=== PATIENT | male | born 1970 | race Caucasian/White ===

== ENCOUNTER → 2016-12-01 | Outpatient (REF) | payer OTHER ==
[2016-12-01 15:56] LABS: ALBUMIN/GLOBULIN RATIO 1.25 (1.00-1.93); ALKALINE PHOSPHATASE 52 U/L (45-117); ALT/SGPT 27 U/L (12-78); ANION GAP 8 MEQ/L (8-16); AST/SGOT 20 U/L (15-37); BILIRUBIN,TOTAL 0.5 MG/DL (0.2-1.0); BLOOD UREA NITROGEN 10 MG/DL (7-18); CALCIUM LEVEL 8.8 MG/DL (8.5-10.1); CARBON DIOXIDE LEVEL 23 MEQ/L (21-32); CHLORIDE LEVEL 101 MEQ/L (98-107); CREATININE FOR GFR 0.79 MG/DL (0.70-1.30); GLOMERULAR FILTRATION RATE > 60.0 (>60); GLUCOSE, FASTING 90 MG/DL (70-105); POTASSIUM SERUM 4.2 MEQ/L (3.5-5.1); SODIUM LEVEL 132 MEQ/L (136-145); TOTAL PROTEIN 7.2 GM/DL (6.4-8.2)
== END ==
LOC: M SFHCPLAZ 14:17
PROVIDERS: ATTEND Physician Assistant
DX: I10 Essential (primary) hypertension (principal)

== ENCOUNTER → 2017-04-01 | Outpatient (CLI) | payer OTHER ==
[2017-04-01 09:10] LABS: ALBUMIN 3.9 GM/DL (3.2-5.2); ALBUMIN/GLOBULIN RATIO 1.18 (1.00-1.93); ALKALINE PHOSPHATASE 51 U/L (45-117); ALT/SGPT 25 U/L (12-78); ANION GAP 4 MEQ/L (8-16); AST/SGOT 20 U/L (7-37); BILIRUBIN,TOTAL 0.3 MG/DL (0.2-1.0); BLOOD UREA NITROGEN 13 MG/DL (7-18); CALCIUM LEVEL 9.1 MG/DL (8.5-10.1); CARBON DIOXIDE LEVEL 27 MEQ/L (21-32); CHLORIDE LEVEL 107 MEQ/L (98-107); CHOLESTEROL LEVEL 244 MG/DL (<200); CREATININE FOR GFR 0.75 MG/DL (0.70-1.30); FREE T4 0.82 NG/DL (0.76-1.46); GLOMERULAR FILTRATION RATE > 60.0 (>60); GLUCOSE, FASTING 102 MG/DL (70-105); POTASSIUM SERUM 5.1 MEQ/L (3.5-5.1); SODIUM LEVEL 138 MEQ/L (136-145); TOTAL PROTEIN 7.2 GM/DL (6.4-8.2); TRIGLYCERIDES LEVEL 97 MG/DL (<150)
== END ==
LOC: M LAB 08:01 → M LAB REF 08:01
PROVIDERS: ATTEND Nurse Practitioner Family
DX: I10 Essential (primary) hypertension (principal); E78.5 Hyperlipidemia, unspecified; N52.9 Male erectile dysfunction, unspecified

== ENCOUNTER → 2017-04-14 | Outpatient (REF) | payer OTHER ==
[2017-04-14 16:54] LABS: FREE T4 0.98 NG/DL (0.76-1.46)
== END ==
LOC: M SFHCPLAZ 13:39
PROVIDERS: ATTEND Nurse Practitioner Family
DX: R94.6 Abnormal results of thyroid function studies (principal)

== ENCOUNTER → 2018-01-11 | Outpatient (CLI) | payer OTHER | LOC: M RAD 15:59 | DX: M54.2 Cervicalgia (principal) | CPT/HCPCS: 72052 ==

== ENCOUNTER → 2018-03-12 | Outpatient (REF) | payer OTHER | LOC: M SFHCPLAZ 16:18 | DX: I10 Essential (primary) hypertension (principal); E78.5 Hyperlipidemia, unspecified ==

== ENCOUNTER → 2018-08-28 | Outpatient (REF) | payer OTHER ==
[2018-08-28 10:43] LABS: MALB URINE SIEMENS 16.6 MG/L; MAU/CREAT RATIO 6.3 MCG/MG (0.0-30.0)
[2018-08-28 11:01] LABS: ALBUMIN 4.1 GM/DL (3.2-5.2); ALT/SGPT 21 U/L (12-78); BILIRUBIN,TOTAL 0.3 MG/DL (0.2-1.0); BLOOD UREA NITROGEN 9 MG/DL (7-18); CALCIUM LEVEL 9.3 MG/DL (8.5-10.1); CARBON DIOXIDE LEVEL 25 MEQ/L (21-32); CHLORIDE LEVEL 105 MEQ/L (98-107); CHOLESTEROL LEVEL 216 MG/DL (<200); CHOLESTEROL RISK RATIO 3.042 (<5); CREATININE FOR GFR 0.73 MG/DL (0.70-1.30); GLOMERULAR FILTRATION RATE > 60.0 (>60); GLUCOSE, FASTING 97 MG/DL (70-100); HDL CHOLESTEROL 71 MG/DL (>40); LDL CHOLESTEROL 129 MG/DL (<100); NON-HDL-C 145 MG/DL; POTASSIUM SERUM 5.1 MEQ/L (3.5-5.1); SODIUM LEVEL 136 MEQ/L (136-145); TOTAL PROTEIN 7.2 GM/DL (6.4-8.2); TRIGLYCERIDES LEVEL 81 MG/DL (<150)
== END ==
LOC: M SFHCPLAZ 08:16
PROVIDERS: ATTEND Nurse Practitioner Family
DX: I10 Essential (primary) hypertension (principal); E78.5 Hyperlipidemia, unspecified

== ENCOUNTER 2019-03-29 06:44 | Day surgery (SDC) | payer OTHER ==
[~2019-03-29] VITALS: Ht 162.6 cm; Wt 61.7 kg
[~2019-03-29 06:44] MED LIST: LISI10TA4 PO; NS 1,000 ML IV ONE
[2019-03-29] MEDS ORDERED: LIDOCAINE 2% INJ 100 MG/5 ML SDV (FOR ANES.) As Ordered ONE (07:47)
[2019-03-29] MEDS ORDERED: PROPOFOL 200 MG/20 ML VIAL As Ordered ONE (07:47)
--- NOTE | 2019-03-29 08:06 | ROOR ---
Patient Name: Óscar Marcus Procedure Date: 03/29/2019 7:29 AM Date of : 1970 Age: 48 Room: [facility] Gender: Male Note Status: Finalized Procedure: Colonoscopy Indications: Screening in patient at increased risk: Family history of 1st-degree relative with colorectal cancer before age 60 years Providers: Pato Segundo MD Referring MD: Tiffanie Mccain NP Requesting Provider: Medicines: Monitored Anesthesia Care Complications: No immediate complications. Procedure: Pre-Anesthesia Assessment: - Prior to the procedure, a History and Physical was performed, and patient medications and allergies were reviewed. The patient is competent. The risks and benefits of the procedure and the sedation options and risks were discussed with the patient. All questions were answered and informed consent was obtained. Patient identification and proposed procedure were verified by the physician, the nurse and the anesthesiologist in the procedure room. Mental Status Examination: alert and oriented. Airway Examination: normal oropharyngeal airway and neck mobility. Respiratory Examination: clear to auscultation. CV Examination: normal. Prophylactic Antibiotics: The patient does not require prophylactic antibiotics. Prior Anticoagulants: The patient has taken no previous anticoagulant or antiplatelet agents. ASA Grade Assessment: II - A patient with mild systemic disease. After reviewing the risks and benefits, the patient was deemed in satisfactory condition to undergo the procedure. The anesthesia plan was to use monitored anesthesia care (MAC). Immediately prior to administration of medications, the patient was re-assessed for adequacy to receive sedatives. The heart rate, respiratory rate, oxygen saturations, blood pressure, adequacy of pulmonary ventilation, and response to care were monitored throughout the procedure. The physical status of the patient was re-assessed after the procedure. The Colonoscope was introduced through the anus and advanced to the terminal ileum, with identification of the appendiceal orifice and IC valve. The colonoscopy was performed without difficulty. The patient tolerated the procedure well. The quality of the bowel preparation was good. The terminal ileum, ileocecal valve, appendiceal orifice, and rectum were photographed. Scope insertion time was 3 minutes. Scope withdrawal time was 8 minutes. The total duration of the procedure was 12 minutes. Findings: The perianal and digital rectal examinations were normal. Two sessile polyps were found in the recto-sigmoid colon. The polyps were 8 to 10 mm in size. These polyps were removed with a cold snare. Resection and retrieval were complete. Verification of patient identification for the specimen was done by the physician and nurse using the patient's name, date and medical record number. Estimated blood loss was minimal. A scattered area of mildly nodular mucosa was found in the ascending colon. Biopsies were taken with a cold forceps for histology. Two medium-sized localized angioectasias without bleeding were found in the recto-sigmoid colon and in the descending colon. Non-bleeding external and internal hemorrhoids were found during retroflexion. The hemorrhoids were medium-sized. Impression: - Two 8 to 10 mm polyps at the recto-sigmoid colon, removed with a cold snare. Resected and retrieved. - Abnormal mucosa in the ascending colon. Biopsied. - Two non-bleeding colonic angioectasias. - Non-bleeding external and internal hemorrhoids. Recommendation: - Patient has a contact number available for emergencies. The signs and symptoms of potential delayed complications were discussed with the patient. Return to normal activities tomorrow. Written discharge instructions were provided to the patient. - High fiber diet. - Continue present medications. - Await pathology results. - Repeat colonoscopy in 3 - 5 years for surveillance based on pathology results. - Telephone GI clinic for pathology results in 2 weeks. - Return to primary care physician. Pato Segundo MD Pato Segundo MD 03/29/2019 8:06:02 AM Electronically signed by Pato Segundo MD Number of Addenda: 0 Note Initiated On: 03/29/2019 7:29 AM Estimated Blood Loss: Estimated blood loss was minimal.
[2019-03-29 08:20] VITALS: BP 132/83
== END 2019-03-29 08:25 | disposition home or self-care (01) ==
LOC: M OPP 06:44
PROVIDERS: ATTEND Internal Medicine Gastroenterology
DX: Z12.11 Encounter for screening for malignant neoplasm of colon (principal); Z80.0 Family history of malignant neoplasm of digestive organs; D12.7 Benign neoplasm of rectosigmoid junction; D12.2 Benign neoplasm of ascending colon; K63.89 Other specified diseases of intestine; K55.20 Angiodysplasia of colon without hemorrhage; K64.8 Other hemorrhoids; F17.210 Nicotine dependence, cigarettes, uncomplicated; Z79.899 Other long term (current) drug therapy; Z88.0 Allergy status to penicillin; Z91.013 Allergy to seafood; Z80.52 Family history of malignant neoplasm of bladder

== ENCOUNTER → 2019-09-09 | Outpatient (REF) | payer OTHER ==
[~2019-09-09] MED LIST changes: -NS 1,000 ML IV ONE
[2019-09-09 14:17] LABS: BASO % 0.3 % (0.0-1.0); EOS # 0.1 10^3/uL (0.0-0.5); EOS % 0.9 % (0.0-3.0); HEMATOCRIT 42.1 % (42.0-52.0); LYMPH # 2.3 10^3/uL (1.5-5.0); MEAN CORPUSCULAR HGB CONC 33.3 g/dl (32.0-36.5); MEAN CORPUSCULAR VOLUME 96.3 fl (80.0-96.0); MONO # 0.9 10^3/uL (0.0-0.8); NEUTROPHILS # 3.3 10^3/uL (1.5-8.5); NEUTROPHILS % 49.5 % (36.0-66.0); PLATELET COUNT, AUTOMATED 319 10^3/uL (150-450); RED BLOOD COUNT 4.37 10^6/uL (4.30-6.10); WHITE BLOOD COUNT 6.7 10^3/uL (4.0-10.0)
[2019-09-09 14:33] LABS: ALBUMIN 3.9 GM/DL (3.2-5.2); ALT/SGPT 24 U/L (12-78); BILIRUBIN,TOTAL 0.5 MG/DL (0.2-1.0); BLOOD UREA NITROGEN 14 MG/DL (7-18); CALCIUM LEVEL 9.2 MG/DL (8.5-10.1); CARBON DIOXIDE LEVEL 27 MEQ/L (21-32); CHLORIDE LEVEL 106 MEQ/L (98-107); CHOLESTEROL LEVEL 218 MG/DL (<200); CHOLESTEROL RISK RATIO 2.759 (<5); CREATININE FOR GFR 0.67 MG/DL (0.70-1.30); FOLLICLE STIMULATING HORMONE 6.5 mIU/mL (1.4-18.1); FREE T4 0.88 NG/DL (0.76-1.46); GLOMERULAR FILTRATION RATE > 60.0 (>60); GLUCOSE, FASTING 97 MG/DL (70-100); HDL CHOLESTEROL 79 MG/DL (>40); LDL CHOLESTEROL 130 MG/DL (<100); LUTEINIZING HORMONE 4.8 mIU/mL (1.5-9.3); NON-HDL-C 139 MG/DL; POTASSIUM SERUM 4.5 MEQ/L (3.5-5.1); SODIUM LEVEL 138 MEQ/L (136-145); TOTAL PROTEIN 7.1 GM/DL (6.4-8.2); TRIGLYCERIDES LEVEL 45 MG/DL (<150); VITAMIN B12 LEVEL 536 PG/ML (247-911)
[2019-09-11 00:09] LABS: TESTOSTERONE FREE (DIRECT) 10.6 pg/mL (6.8-21.5)
== END ==
LOC: M SFHCPLAZ 10:09
PROVIDERS: ATTEND Physician Assistant Medical
DX: E78.5 Hyperlipidemia, unspecified (principal); I10 Essential (primary) hypertension; F17.200 Nicotine dependence, unspecified, uncomplicated; N52.9 Male erectile dysfunction, unspecified

== ENCOUNTER 2019-09-16 10:46 | Emergency (ER) | payer OTHER ==
[~2019-09-16] VITALS: Ht 162.6 cm; Wt 65.6 kg
[2019-09-16] MEDS ORDERED: CYCL-707 (10:57)
[2019-09-16] MEDS ORDERED: ATOR1TAB21 (10:57)
[2019-09-16 11:25] LABS: BASO % 0.4 % (0.0-1.0); EOS # 0.1 10^3/uL (0.0-0.5); EOS % 0.6 % (0.0-3.0); HEMATOCRIT 44.9 % (42.0-52.0); HEMOGLOBIN 15.4 g/dl (13.5-17.5); LYMPH # 2.6 10^3/uL (1.5-5.0); LYMPH % 32.8 % (24.0-44.0); MEAN CORPUSCULAR HEMOGLOBIN 33.6 pg (27.0-33.0); MEAN CORPUSCULAR HGB CONC 34.3 g/dl (32.0-36.5); MEAN CORPUSCULAR VOLUME 97.8 fl (80.0-96.0); MONO # 0.8 10^3/uL (0.0-0.8); MONO % 10.3 % (0.0-5.0); NEUTROPHILS # 4.4 10^3/uL (1.5-8.5); NEUTROPHILS % 55.5 % (36.0-66.0); PLATELET COUNT, AUTOMATED 275 10^3/uL (150-450); RED BLOOD COUNT 4.59 10^6/uL (4.30-6.10); WHITE BLOOD COUNT 7.9 10^3/uL (4.0-10.0)
[2019-09-16 12:02] LABS: BLOOD UREA NITROGEN 13 MG/DL (7-18); CARBON DIOXIDE LEVEL 27 MEQ/L (21-32); CHLORIDE LEVEL 104 MEQ/L (98-107); CK-MB VALUE MASS < 1.0 NG/ML (<3.6); CPK CREATINE PHOSPHOKINASE 80 U/L (39-308); GLOMERULAR FILTRATION RATE > 60.0 (>60); GLUCOSE, FASTING 103 MG/DL (70-100); MB/CK RELATIVE INDEX 1.25 (< OR =4); POTASSIUM SERUM 4.1 MEQ/L (3.5-5.1); SODIUM LEVEL 136 MEQ/L (136-145); TROPONIN I < 0.02 NG/ML (< 0.10)
[2019-09-16 13:15] VITALS: BP 119/73
--- NOTE | 2019-09-16 13:39 | REP ---
CHEST, SINGLE VIEW: There is no evidence of acute infiltrate. No pleural effusion is seen. The heart is normal in size. The mediastinal silhouette is unremarkable. The visualized osseous structures are intact. IMPRESSION: No acute pulmonary disease. Electronically Signed by Enrrique Ruiz MD 09/16/2019 01:46 P
--- NOTE | 2019-09-16 16:46 | ECGEPIP ---
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
== END 2019-09-16 13:21 | disposition home or self-care (01) ==
LOC: M ED 10:46
DX: M54.12 Radiculopathy, cervical region (principal); R07.89 Other chest pain; Z79.899 Other long term (current) drug therapy; Z88.0 Allergy status to penicillin; Z91.018 Allergy to other foods; F17.210 Nicotine dependence, cigarettes, uncomplicated

== ENCOUNTER → 2019-12-18 | Outpatient (REF) | payer OTHER ==
[~2019-12-18] MED LIST changes: +ATOR1TAB21; +CYCL-707
[2020-01-18 10:19] LABS: BASO % 0.3 % (0.0-1.0); EOS # 0.1 10^3/uL (0.0-0.5); EOS % 0.8 % (0.0-3.0); HEMOGLOBIN 14.1 g/dl (13.5-17.5); LYMPH # 2.9 10^3/uL (1.5-5.0); LYMPH % 33.2 % (24.0-44.0); MEAN CORPUSCULAR HEMOGLOBIN 33.2 pg (27.0-33.0); MEAN CORPUSCULAR HGB CONC 33.6 g/dl (32.0-36.5); MEAN CORPUSCULAR VOLUME 98.8 fl (80.0-96.0); MONO % 10.8 % (0.0-5.0); NEUTROPHILS # 4.8 10^3/uL (1.5-8.5); NEUTROPHILS % 54.6 % (36.0-66.0); PLATELET COUNT, AUTOMATED 294 10^3/uL (150-450); RED BLOOD COUNT 4.25 10^6/uL (4.30-6.10); WHITE BLOOD COUNT 8.9 10^3/uL (4.0-10.0)
[2020-01-31 21:52] LABS: ALBUMIN 4.1 GM/DL (3.2-5.2); ALT/SGPT 32 U/L (12-78); BILIRUBIN,TOTAL 0.5 MG/DL (0.2-1.0); BLOOD UREA NITROGEN 14 MG/DL (7-18); CALCIUM LEVEL 9.4 MG/DL (8.5-10.1); CARBON DIOXIDE LEVEL 29 MEQ/L (21-32); CHLORIDE LEVEL 105 MEQ/L (98-107); CHOLESTEROL LEVEL 160 MG/DL (<200); CHOLESTEROL RISK RATIO 2.051 (<5); CREATININE FOR GFR 0.69 MG/DL (0.70-1.30); GLOMERULAR FILTRATION RATE > 60.0 (>60); GLUCOSE, FASTING 98 MG/DL (70-100); HDL CHOLESTEROL 78 MG/DL (>40); LDL CHOLESTEROL 71 MG/DL (<100); NON-HDL-C 82 MG/DL; POTASSIUM SERUM 5.1 MEQ/L (3.5-5.1); SODIUM LEVEL 138 MEQ/L (136-145); TOTAL PROTEIN 7.3 GM/DL (6.4-8.2); TRIGLYCERIDES LEVEL 57 MG/DL (<150)
== END ==
LOC: M SFHCPLAZ 15:12
PROVIDERS: ATTEND Physician Assistant Medical
DX: I10 Essential (primary) hypertension (principal); E78.5 Hyperlipidemia, unspecified

== ENCOUNTER → 2020-04-17 | Outpatient (CLI) | payer OTHER ==
--- NOTE | 2020-04-17 11:28 | REPPI ---
INDICATION: CYST LEFT HAND COMPARISON: None. TECHNIQUE: Four plain film views of the left hand. FINDINGS: There is no fracture or dislocation. Mineralization and joint spaces are normal. There are no calcifications or foreign bodies. No bone cysts are identified. Soft tissue cysts would not be visible on plain films. IMPRESSION: Essentially negative left hand. No bone cysts are identified. Soft tissues cyst would not be visible on plain films. Depending on clinical concerns consider follow-up MRI or ultrasound. <Electronically signed by Enrrique Howell > 04/17/20 112
== END ==
LOC: M PLAIMG 10:27
PROVIDERS: ATTEND Physician Assistant Medical
DX: M85.642 Other cyst of bone, left hand (principal)

== ENCOUNTER → 2020-05-17 | Outpatient (CLI) | payer OTHER | LOC: M LABSMTC 08:22 | PROVIDERS: ATTEND Anesthesiology | DX: Z01.812 Encounter for preprocedural laboratory examination (principal); Z20.822 Contact with and (suspected) exposure to COVID-19 ==

== ENCOUNTER → 2020-06-04 | Outpatient (CLI) | payer OTHER | LOC: M LABSMTC 10:52 | PROVIDERS: ATTEND Anesthesiology | DX: Z01.812 Encounter for preprocedural laboratory examination (principal); Z20.822 Contact with and (suspected) exposure to COVID-19 ==

== ENCOUNTER → 2020-06-04 | Outpatient (REF) | payer OTHER ==
[2020-06-04 13:49] LABS: BASO % 0.3 % (0.0-1.0); EOS # 0.1 10^3/uL (0.0-0.5); EOS % 0.8 % (0.0-3.0); HEMATOCRIT 38.5 % (42.0-52.0); HEMOGLOBIN 12.6 g/dl (13.5-17.5); LYMPH # 2.3 10^3/uL (1.5-5.0); LYMPH % 35.6 % (24.0-44.0); MEAN CORPUSCULAR HEMOGLOBIN 32.1 pg (27.0-33.0); MEAN CORPUSCULAR HGB CONC 32.7 g/dl (32.0-36.5); MONO # 0.8 10^3/uL (0.0-0.8); MONO % 12.9 % (0.0-5.0); NEUTROPHILS # 3.3 10^3/uL (1.5-8.5); NEUTROPHILS % 50.2 % (36.0-66.0); PLATELET COUNT, AUTOMATED 278 10^3/uL (150-450); RED BLOOD COUNT 3.93 10^6/uL (4.30-6.10); WHITE BLOOD COUNT 6.5 10^3/uL (4.0-10.0)
[2020-06-04 14:42] LABS: ALT/SGPT 33 U/L (12-78); BILIRUBIN,TOTAL 0.5 MG/DL (0.2-1.0); BLOOD UREA NITROGEN 13 MG/DL (7-18); CALCIUM LEVEL 9.3 MG/DL (8.5-10.1); CARBON DIOXIDE LEVEL 27 MEQ/L (21-32); CHLORIDE LEVEL 105 MEQ/L (98-107); CPK CREATINE PHOSPHOKINASE 172 U/L (39-308); CREATININE FOR GFR 0.72 MG/DL (0.70-1.30); GLOMERULAR FILTRATION RATE > 60.0 (>60); GLUCOSE, FASTING 114 MG/DL (70-100); POTASSIUM SERUM 4.4 MEQ/L (3.5-5.1); SODIUM LEVEL 140 MEQ/L (136-145); TOTAL PROTEIN 6.8 GM/DL (6.4-8.2)
== END ==
LOC: M PLALAB 10:58
PROVIDERS: ATTEND Physician Assistant Medical
DX: E78.5 Hyperlipidemia, unspecified (principal); F17.200 Nicotine dependence, unspecified, uncomplicated; I10 Essential (primary) hypertension; Z12.5 Encounter for screening for malignant neoplasm of prostate

== ENCOUNTER 2020-06-09 06:41 | Day surgery (SDC) | payer OTHER ==
[~2020-06-09] VITALS: Ht 162.6 cm; Wt 62.6 kg
[~2020-06-09 06:41] MED LIST changes: +NS 1,000 ML IV ONE
--- OUTSIDE RECORDS SUMMARY | 2020-06-09 06:46 | CCD ---
Author Author [facility] Organization [facility] Address Unknown Phone Unavailable Care Team Providers Care Supervisor Blasting Name Role Phone ZenaLeandra ward Unavailable PROBLEMS Type Condition ICD9-CM Code [id number] Code Onset Dates Condition S tatus SNOMED Code Notes Problem Erectile dysfunction, unspecified erectile dysfunction typ e N52.9 Active 193976705 Problem Acute left-sided low back pain with left-sided sciatica M54.42 Active 872719041 Problem Lumbago with sciatica, unspecified side M54.40 Active 534380628 Problem Polyp of colon, unspecified part of colon, unspecified typ e K63.5 Active 73981936 Problem Hyperlipidemia, unspecified hyperlipidemia type E7 8.5 Active 07001233 Problem Prostate cancer screening Z12.5 Active 906592 001 Problem Essential hypertension I10 Active 47953724 Problem Other chronic pain G89.29 Active 53357353 Problem Osteoarthritis of cervical s pine, unspecified spinal osteoarthritis complication status M47.812 Active 231927925 Problem Smoker F17.200 Active 96310636 Problem Family history of colon cancer in father Z80.0 Active 435439691 ALLERGIES Allergen (clinical drug ingredient) Drug/Non Drug Allergy do cumented on EMR Reaction Allergy Type Onset Date Status Penicillin (For Allergies Use Only) Rash Drug Allerg y Active [place] Rash Non Drug Allergy Active ENCOUNTERS from 1970 to 2020-04-23 Encounter Location Date Provider Diagnosis [address] [address] Apr, Leandra Rosas Essential hypertension I10 ; Hyperlipide rupinder, unspecified hyperlipidemia type E78.5 ; Erectile dysfunction, unspecified erectile dysfunction type N52.9 ; Acute left-sided low back pain with left-sided sciatica M54.42 ; Lumbago with sciatica, unspecified side M54.40 ; Osteoarthritis of cervical spine, unspecified spinal osteoarthritis complication status M47.812 ; Smoker F17.200 ; Cyst of bone of left hand M85.642 ; Prostate cancer screening Z12.5 ; Polyp of colon, unspecified part of colon, unspecified type K63.5 and Family history of colon cancer in father Z80.0 IMMUNIZATIONS Vaccine Route Administration Date Status Pneumococcal Adult 0.5mL (Pneumovax 23) IM Intramuscular May 09, 2019 Administered Influenza (6mo & up) Fluzone IM Intramuscular Mar 12, 2018 Ad ministered Influenza (6mo & up) Fluzone IM Intramuscular Mar 13, 2017 Ad ministered Influenza (6mo & up) Fluzone IM Intramuscular Feb 18, 2016 Ad ministered SOCIAL HISTORY Tobacco Use: Social History Observation Description Date Details (start date - stop date) Current Smoker Sex Assigned At : Social History Observation Description Sex Assigned At Unknown Education: Question Answer Notes Level of Education: Not finished High School 8th Audit Question Answer Notes Total Score: 2 Interpretation: Alcohol Education Language: Question Answer Notes Languages spoken: Bahamian Catholic: Question Answer Notes Catholic 34 None Sexual Hx: Question Answer Notes Had sex in the last 12 months (vaginal, oral, or anal)? Yes Have you ever had an STD? No Prevention Strategies discussed: Other with Women only Use protection? No Drug and Alcohol Question Answer Notes Total Score: 0 Stopped using alcoho l in the past few days, prior to that drank 2-3 years per night Interpretation: No problems reported Alcohol Screening: Question Answer Notes Did you have a drink containing alcohol in the past year? Ye s Points 6 Interpretation Positive How often did you have six or more drinks on one occas ion in the past year? Monthly (2 points) How many drinks did you have on a typica l day when you were drinking in the past year? 3 or 4 (1 point) How often did you have a drink containing alcohol in t he past year? Two to three times per week (3 points) Tobacco Use: Question Answer Notes Are you a: current smoker Patient counseled on the dangers of tobacco use and urged to quit: 04/17/2020 How many cigarettes a day do you smoke? 6-10 Are you interested in quitting? Thinking about quitting Counseled the patient on smoking cessation, education provid ed 04/17/2020 REASON FOR REFERRAL No Information VITAL SIGNS Weight 142.8 lbs Apr, Height 64 in Apr, BMI 24.51 kg/m2 Apr, Heart Rate 99 /min Apr, Respiratory Rate 18 /min Apr, Temperature 98.3 degrees Fahrenheit Apr, Oximetry 99% Apr, Blood pressure systolic 122 mm Hg Apr, Blood pressure diastolic 82 mm Hg Apr, MEDICATIONS Medication SIG (Take, Route, Frequency, Duration) Notes Start Da te End Date Status Viagra 25 MG 1 tablet as needed Orally Once a day for 30 day(s) Active Nicoderm CQ 14 MG/24HR 1 patch to skin Transdermal Once a day for 3 0 day(s) Active Lipitor 20 MG 1 tablet Orally Once a day for 30 day(s) Active Naproxen 500 MG 1 tablet with food or milk as needed Orally every 12 hrs Active Lisinopril 20 MG 1/2 tablet Orally bid for 30 day(s) Active Flexeril 10 MG 1 tablet as needed Orally Three times a day for 30 Day s Active PROCEDURES No Information RESULTS Component Value Reference Range PLZ HAND COMPLETE Reviewed date:04/17/2020 13:21:17 Interpretation: Performing Lab:[facility],[address]], ,[place] [id number] REASON FOR VISIT 4 mo FU MEDICAL (GENERAL) HISTORY Type Description Date Medical History OA and Cervical spine arthritis Medical History Essential HTN Medical History Hypercholesterolemia Surgical History appendectomy 1995 Surgical History right and left inguinal repair 1995 Surgical History colonoscopy (03/29/2019) 2018 Goals Section No Information Health Concerns No Information MEDICAL EQUIPMENT No Information MENTAL STATUS No Information FUNCTIONAL STATUS No Information ASSESSMENTS Encounter Date Diagnosis Assessment Notes Treatment Notes Treatm ent Clinical Notes Apr, Essential hypertension (ICD-10 - I10) Controlled 02/2020 lisinopril 20mg 1/2 bid 12/2019 wbc 8.9, H&H 14.1&42.0, 294kplats. rbc 4.25, MCV 98.8 Apr, Hyperlipidemia, unspecified hyperlipidemia type (ICD-10 - E78.5) Controlled on current dose 12/2019 71/78/57 09/2019 LDL 130 Had just started lipitor 08/2018 LDL 129/HDL 71/TG 81 12/2019 Na 138, K5.1, bun/r 14/0.69, gluc 98, calc. 9.4, ast 24, alt 32, Apr, Erectile dysfunction, unspec ified erectile dysfunction type (ICD-10 - N52.9) Doing well c current dose 09/09/2019EKG nl SInus rate 67 in Clinic today 09/2019 Free test. 10.6, Total 577.0, FSH 6.5, LH 4.8, Tsh 3.130, FT4 0.88, Apr, Acute left-sided low back pa in with left-sided sciatica (ICD-10 - M54.42) Resolved Apr, Lumbago with sciatica, unspecified side (ICD-10 - M54.40) REsolved also Apr, Osteoarthritis of cervical s pine, unspecified spinal osteoarthritis complication status (ICD-10 - M47.812) Conts. c above has DDDis. did PT for awhile Apr, Smoker (ICD-10 - F17.200) Will try the patch, has reduced to 10/D from 30/D cigs. Apr, Cyst of bone of left hand (ICD-10 - M85.642) Consulted ortho, xrays, ice, elevate, epsom salt soaks Apr, Prostate cancer screening (ICD-10 - Z12.5) 12/2019Apr, Polyp of colon, unspecified part of colon, unspecified type (ICD-10 - K63.5) He is scheduled for 2nd colonoscopy, had 3polyps at least 1 adenomatous, poor prep/obstruction so repeat Apr, Family history of colon cancer in father (ICD-10 - Z80.0) Dad in his 50's + PLAN OF TREATMENT Medication Medication Name Sig Start Date Stop Date Viagra 25 MG 1 tablet as needed Orally Once a day for 30 day( s) Lisinopril 20 MG 1/2 tablet Orally bid for 30 day(s) Flexeril 10 MG 1 tablet as needed Orally Three times a day for 30 Days Naproxen 500 MG 1 tablet with food or milk as needed Orally ever y 12 hrs Nicoderm CQ 14 MG/24HR 1 patch to skin Transdermal Once a day fo r 30 day(s) Lipitor 20 MG 1 tablet Orally Once a day for 30 day(s) Treatment Notes Assessment Notes Clinical Notes Essential hypertension Ezdirltjsz59/2020 lisinopril 20mg 1/2 bid12/2019 wbc 8.9, H&H 14.1&42.0, 294kplats.rbc 4.25, MCV 98.8 Hyperlipidemia, unspecified hyperlipidemia type Controlled on current dose12/2019 71/78/5709/2019 LDL 130 Had just started lipitor08/2018 LDL 129/HDL 71/TG 8112/2019 Na 138, K5.1, bun/r 14/0.69, gluc 98, calc. 9.4, ast 24, alt 32, Erectile dysfunction, unspecified erectile dysfunction type Doing well c current dose09/09/2019EKG nl SInus rate 67 in Clinic today09/2019 Free test. 10.6, Total 577.0, FSH 6.5, LH 4.8, Tsh 3.130, FT4 0.88, Acute left-sided low back pain with left-sided sciatica Resolved Lumbago with sciatica, unspecified side REsolved also Osteoarthritis of cervical spine, unspec ified spinal osteoarthritis complication status Conts. c above has DDDis. di d PT for awhile Smoker Will try the patch, has reduced to 10/D from 30/D cigs. Cyst of bone of left hand Consulted orth o, xrays, ice, elevate, epsom salt soaks Prostate cancer screening 12/2019 Polyp of colon, unspecified part of colon, unspecified type He is scheduled for 2nd colonoscopy, had 3polyps at least 1 adenomatous, poor prep/obstruction so repeat Family history of colon cancer in father Dad in his 50's + Future Test Test Name Order Date PSA SCREENING [id number] CBC with Differential [id number] Comprehensive Metabolic Profile (CMP) [id number] CPK CREATINE PHOSPHOKINASE [id number] Next Appt Details 4-5 Months c SS Reason: Provider Name:Leandra Rosas, 08-21 03:00:00 PM, [address] [place], [address], Insurance Providers Payer Name Payer Address Payer Phone Insured Name Patient Relati onship to Insured Coverage Start Date Coverage End Date [facility] [address] [facility] [id number] JUJU FOLEY self
--- OUTSIDE RECORDS SUMMARY | 2020-06-09 06:46 | CCD | Continuity of Care Document ---
Author Author Óscar STALEY Organization Unknown Address [address] [place] [address], [address] [place] [address] Phone [phone] Care Team Providers Care Liquefaction Supervisor Name Role Phone Tiffanie MccainN.P. AUTM [phone] Leandra RosasNBennyP. AUTM [phone] Problems Active Problems Provider Date Essential hypertension BEREKET Vincent Onset: Social History Type Date Description Comments Sex Unknown ETOH Use 12 A Week Tobacco Use Start: Unknown Report Cessation Counseling Was Provided Tobacco Use Start: Unknown Smokes 1/2 Pack A Day Allergies, Adverse Reactions, Alerts Active Allergies Reaction Severity Comments Date Penicillin 12/01/2015 Seafood 12/01/2015 Medications Active Medications SIG Qnty Indications Ordering Provide r Date Miralax 17GM/Scoop Powder use as instructed by doctor for bowel prep 510gm Z12.11 Camacho Villalba MD 04/10/[address] take 4 tabs by mouth prior to procedure per instructions. 4tabs Z12.11 Camacho Villalba MD 04/10/2020 Lisinopril 20mg Tablets 1tab po qd Unknown Atorvastatin Calcium 20mg Tablets 1 by mouth every day Unknown Immunizations Description No Information Available Vital Signs Date Vital Result Comment 04/09/2020 11:10am BP Systolic 158 mmHg BP Diastolic 92 mmHg Height 64 inches 5'4" Weight 140.00 lb BMI (Body Mass Index) 24.0 kg/m2 [place] Body Weight 130 lb Weight 63.504 kg BSA (Body Surface Area) 1.68 m2 01/01/2019 11:23am BP Systolic 138 mmHg BP Diastolic 74 mmHg Height 64 inches 5'4" Weight 141.00 lb BMI (Body Mass Index) 24.2 kg/m2 [place] Body Weight 130 lb Weight 63.958 kg BSA (Body Surface Area) 1.69 m2 Results Description No Information Available Procedures Description No Information Available Medical Devices Description No Information Available Encounters Description No Information Available Assessments Date Code Description Provider 04/10/2020 Z12.11 Encounter for screening for oni gnant neoplasm of colon BEREKET Vincent 04/10/2020 Z86.010 Personal history of colonic poly ps Deborah Brynn BEREKET Staley 04/10/2020 Z80.0 Family history of malignant neop lasm of digestive organs BEREKET Vincent Plan of Treatment 04/10/2020 - BEREKET Vincent* Z12.11 Encounter for screening for malignant neoplasm of colon * Z86.010 Personal history of colonic polyps * Z80.0 Family history of malignant neoplasm of digestive organs * * New Medication:* Miralax 17 GM/Scoop * Dulcolax 5 mg * New Orders:* Colonoscopy, Ordered: 04/10/20 * Comments:* Will arrange for colonoscopy. Reviewed risks and benefits of the procedure, as well as other options, with the patient. Bowel prep procedure was discussed with patient, as well as risks and side effects associated with the bowel prep. Patient verbalized understanding of all of the above and is in agreement to proceed. Patient will seek medical attention for any acute changes. Will monitor. * Follow up:* As scheduled, sooner if needed. Functional Status Description No Information Available Mental Status Description No Information Available Referrals Description No Information Available
--- OUTSIDE RECORDS SUMMARY | 2020-06-09 06:46 | CCD ---
Author Author [facility] Organization [facility] Address Unknown Phone Unavailable Care Team Providers Care Neck Cutter Name Role Phone DRAZEK, I TRUDY PA Unavailable Unavailable DRAZEK, I TRUDY PA Unavailable Unavailable DRAZEK, I TRUDY PA Unavailable Unavailable DRAZEK, I TRUDY PA Unavailable Unavailable DRAZEK, I TRUDY PA Unavailable Unavailable DRAZEK, I TRUDY PA Unavailable Unavailable DRAZEK, I TRUDY PA Unavailable Unavailable DRAZEK, I TRUDY PA Unavailable Unavailable DRAZEK, I TRUDY PA Unavailable Unavailable DRAZEK, I TRUDY PA Unavailable Unavailable DRAZEK, I TRUDY PA Unavailable Unavailable DRAZEK, I TRUDY PA Unavailable Unavailable DRAZEK, I TRUDY PA Unavailable Unavailable DRAZEK, I TRUDY PA Unavailable Unavailable DRAZEK, I TRUDY PA Unavailable Unavailable DRAZEK, I TRUDY PA Unavailable Unavailable DRAZEK, I TRUDY PA Unavailable Unavailable DRAZEK, I TRUDY PA Unavailable Unavailable DRAZEK, I TRUDY PA Unavailable Unavailable DRAZEK, I TRUDY PA Unavailable Unavailable DRAZEK, I TRUDY PA Unavailable Unavailable DRAZEK, I TRUDY PA Unavailable Unavailable DRAZEK, I TRUDY PA Unavailable Unavailable DRAZEK, I TRUDY PA Unavailable Unavailable DRAZEK, I TRUDY PA Unavailable Unavailable DRAZEK, I TRUDY PA Unavailable Unavailable DRAZEK, I TRUDY PA Unavailable Unavailable DRAZEK, I TRUDY PA Unavailable Unavailable DRAZEK, I TRUDY PA Unavailable Unavailable DRAZEK, I TRUDY PA Unavailable Unavailable FONS, JUANCARLOS Unavailable Unavailable Jeff, D Fuad WAITER/WAITRESS TAVERN Unavailable Unavailable Jeff, D Fuad WAITER/WAITRESS TAVERN Unavailable Unavailable Jeff, D Fuad WAITER/WAITRESS TAVERN Unavailable Unavailable Jeff, D Fuad WAITER/WAITRESS TAVERN Unavailable Unavailable Jeff, D Fuad WAITER/WAITRESS TAVERN Unavailable Unavailable Jeff, D Fuad WAITER/WAITRESS TAVERN Unavailable Unavailable Jeff, D Fuad WAITER/WAITRESS TAVERN Unavailable Unavailable Jeff, D Fuad WAITER/WAITRESS TAVERN Unavailable Unavailable Jeff, D Fuad WAITER/WAITRESS TAVERN Unavailable Unavailable Jeff, D Fuad WAITER/WAITRESS TAVERN Unavailable Unavailable Jeff, D Fuad WAITER/WAITRESS TAVERN Unavailable Unavailable Jeff, D Fuad WAITER/WAITRESS TAVERN Unavailable Unavailable Jeff, D Fuad WAITER/WAITRESS TAVERN Unavailable Unavailable Jeff, D Fuad WAITER/WAITRESS TAVERN Unavailable Unavailable Jeff, D Fuad WAITER/WAITRESS TAVERN Unavailable Unavailable Jeff, D Fuad WAITER/WAITRESS TAVERN Unavailable Unavailable Jeff, D Fuad WAITER/WAITRESS TAVERN Unavailable Unavailable Jeff, D Fuad WAITER/WAITRESS TAVERN Unavailable Unavailable Jeff, D Fuad WAITER/WAITRESS TAVERN Unavailable Unavailable Jfef, D Fuad WAITER/WAITRESS TAVERN Unavailable Unavailable Jeff, D Fuad WAITER/WAITRESS TAVERN Unavailable Unavailable Jeff, D Fuad WAITER/WAITRESS TAVERN Unavailable Unavailable Jeff, D Fuad WAITER/WAITRESS TAVERN Unavailable Unavailable Jeff, D Fuad WAITER/WAITRESS TAVERN Unavailable Unavailable Jeff, D Fuad WAITER/WAITRESS TAVERN Unavailable Unavailable Jeff, D Fuad WAITER/WAITRESS TAVERN Unavailable Unavailable Jeff, D Fuad WAITER/WAITRESS TAVERN Unavailable Unavailable Jeff, D Fuad WAITER/WAITRESS TAVERN Unavailable Unavailable DRAZEK, I TRUDY PA Unavailable Unavailable DRAZEK, I TRUDY PA Unavailable Unavailable DRAZEK, I TRUDY PA Unavailable Unavailable DRAZEK, I TRUDY PA Unavailable Unavailable DRAZEK, I TRUDY PA Unavailable Unavailable DRAZEK, I TRUDY PA Unavailable Unavailable DRAZEK, I TRUDY PA Unavailable Unavailable DRAZEK, I TRUDY PA Unavailable Unavailable DRAZEK, I TRUDY PA Unavailable Unavailable DRAZEK, I TRUDY PA Unavailable Unavailable DRAZEK, I TRUDY PA Unavailable Unavailable DRAZEK, I TRUDY PA Unavailable Unavailable DRAZEK, I TRUDY PA Unavailable Unavailable DRAZEK, I TRUDY PA Unavailable Unavailable DRAZEK, I TRUDY PA Unavailable Unavailable DRAZEK, I TRUDY PA Unavailable Unavailable DRAZEK, I TRUDY PA Unavailable Unavailable DRAZEK, I TRUDY PA Unavailable Unavailable DRAZEK, I TRUDY PA Unavailable Unavailable DRAZEK, I TRUDY PA Unavailable Unavailable DRAZEK, I TRUDY PA Unavailable Unavailable DRAZEK, I TRUDY PA Unavailable Unavailable DRAZEK, I TRUDY PA Unavailable Unavailable DRAZEK, I TRUDY PA Unavailable Unavailable DRAZEK, I TRUDY PA Unavailable Unavailable DRAZEK, I TRUDY PA Unavailable Unavailable DRAZEK, I TRUDY PA Unavailable Unavailable DRAZEK, I TRUDY PA Unavailable Unavailable DRAZEK, I TRUDY PA Unavailable Unavailable DRAZEK, I TRUDY PA Unavailable Unavailable Jeff, D Fuad WAITER/WAITRESS TAVERN Unavailable Unavailable Jeff, D Fuad WAITER/WAITRESS TAVERN Unavailable Unavailable Jeff, D Fuad WAITER/WAITRESS TAVERN Unavailable Unavailable Jeff, D Fuad WAITER/WAITRESS TAVERN Unavailable Unavailable Jeff, D Fuad WAITER/WAITRESS TAVERN Unavailable Unavailable Jeff, D Fuad WAITER/WAITRESS TAVERN Unavailable Unavailable Jeff, D Fuad WAITER/WAITRESS TAVERN Unavailable Unavailable Jeff, D Fuad WAITER/WAITRESS TAVERN Unavailable Unavailable Jeff, D Fuad WAITER/WAITRESS TAVERN Unavailable Unavailable Jeff, D Fuad WAITER/WAITRESS TAVERN Unavailable Unavailable Jeff, D Fuad WAITER/WAITRESS TAVERN Unavailable Unavailable Jeff, D Fuad WAITER/WAITRESS TAVERN Unavailable Unavailable Jeff, D Fuad WAITER/WAITRESS TAVERN Unavailable Unavailable Jeff, D Fuad WAITER/WAITRESS TAVERN Unavailable Unavailable Jeff, D Fuad WAITER/WAITRESS TAVERN Unavailable Unavailable Jeff, D Fuad WAITER/WAITRESS TAVERN Unavailable Unavailable Jeff, D Fuad WAITER/WAITRESS TAVERN Unavailable Unavailable Jeff, D Fuad WAITER/WAITRESS TAVERN Unavailable Unavailable Jfef, D Fuad WAITER/WAITRESS TAVERN Unavailable Unavailable Jeff, D Fuad WAITER/WAITRESS TAVERN Unavailable Unavailable Jeff, D Fuad WAITER/WAITRESS TAVERN Unavailable Unavailable Jeff, D Fuad WAITER/WAITRESS TAVERN Unavailable Unavailable Jeff, D Fuad WAITER/WAITRESS TAVERN Unavailable Unavailable Ejff, D Fuad WAITER/WAITRESS TAVERN Unavailable Unavailable Jeff, D Fuad WAITER/WAITRESS TAVERN Unavailable Unavailable Jeff, D Fuad WAITER/WAITRESS TAVERN Unavailable Unavailable Jeff, D Fuad WAITER/WAITRESS TAVERN Unavailable Unavailable Jeff, D Fuad WAITER/WAITRESS TAVERN Unavailable Unavailable Re-disclosure Warning The records that you are about to access may contain information from federally-assisted alcohol or drug abuse programs. If such information is present, then the following federally mandated warning applies: This information has been disclosed to you from records protected by federal confidentiality rules (42 CFR part 2). The federal rules prohibit you from making any further disclosure of this information unless further disclosure is expressly permitted by the written consent of the person to whom it pertains or as otherwise permitted by 42 CFR part 2. A general authorization for the release of medical or other information is NOT sufficient for this purpose. The Federal rules restrict any use of the information to criminally investigate or prosecute any alcohol or drug abuse patient.The records that you are about to access may contain highly sensitive health information, the redisclosure of which is protected by Article 27-F of the [facility] Public Health law. If you continue you may have access to information: Regarding HIV / AIDS; Provided by facilities licensed or operated by the [facility] Office of Mental Health; or Provided by the [facility] Office for People With Developmental Disabilities. If such information is present, then the following [facility] mandated warning applies: This information has been disclosed to you from confidential records which are protected by state law. State law prohibits you from making any further disclosure of this information without the specific written consent of the person to whom it pertains, or as otherwise permitted by law. Any unauthorized further disclosure in violation of state law may result in a fine or senior living sentence or both. A general authorization for the release of medical or other information is NOT sufficient authorization for further disc losure. Allergies and Adverse Reactions Type Description Substance Reaction Status Data Source(s ) CLASS PENICILLINS (CLASS) PENICILLINS (CLASS) RASH [facility] Drug allergy Penicillin (For Allergies Use Only) Drug allergy Rash Active eCW1 ([facility]) Seafoood Seafoood Seafoood Rash Active eCW1 ([facility]) Seafoood Seafoood Seafoood Rash Active eCW1 ([facility]) Seafoood Seafoood Seafoood Rash Active eCW1 ([facility]) Family History Family Member Name Family Member Gender Family Member Status Date o f Status Description Data Source(s) Unknown Female Problem MEDENT ([facility]) Unknown Unknown Problem MEDENT ([facility], ) Unknown Unknown Problem MEDENT ([facility] ) Unknown Unknown Problem MEDENT ([facility], ) Unknown Female Encounters Encounter Providers Location Date Indications Data Source(s ) [place] [address] [address] 04/17/2020 12:00:00 AM EST eCW1 ([facility]) [place] [address] [address] 03/02/2020 12:00:00 AM EDT eCW1 ([facility]) Outpatient Attender: Fuad Aguilar NPAttender: JUANCARLOS DELUCA 02/15/2020 10:20:00 AM EDT - 02/15/2020 10:20:00 AM EDT [facility] Out[facility] Attender: Fuad Aguilar WAITER/WAITRESS TAVERN Family Practice 02/2020 10:15:00 AM EDT MED[facility] ([facility]) [place] [address] [address] 02/07/2020 12:00:00 AM EDT eCW1 [facility] [address] [address] 12/18/2019 12:00:00 AM EDT eCW1 ([facility]) Outpatient Attender: TRUDY THOMPSON Physical Therapy 12/11/2019 0 9:15:00 AM EDT MEDENT ([facility] ) Outpatient Referrer: TRUDY THOMPSON 10/16/2019 05:34:00 AM EDT [facility] Outpatient Referrer: TRUDY THOMPSON 10/09/2019 10:54:00 AM EDT [facility] Outpatient Referrer: TRUDY THOMPSON 10/09/2019 10:51:00 AM EDT [facility] Outpatient Referrer: TRUDY THOMPSON 10/09/2019 10:50:00 AM EDT [facility] Outpatient Referrer: TRUDY THOMPSON 10/09/2019 10:50:00 AM EDT [facility] Outpatient Referrer: TRUDY THOMPSON 10/09/2019 10:50:00 AM EDT [facility] Outpatient Referrer: TRUDY THOMPSON 10/09/2019 10:50:00 AM EDT [facility] Outpatient Referrer: TRUDY THOMPSON 10/08/2019 06:18:00 AM EDT [facility] Outpatient Referrer: TRUDY THOMPSON 10/02/2019 10:59:00 AM EDT [facility] Outpatient Referrer: TRUDY THOMPSON 10/02/2019 10:56:00 AM EDT [facility] Outpatient Referrer: TRUDY THOMPSON 10/01/2019 12:46:00 PM EDT [facility] Outpatient Referrer: TRUDY THOMPSON 09/27/2019 05:18:00 AM EDT [facility] OFFICE OUTPATIENT NEW 30 MINUTES Attender: TRUDY THOMPSON Physic al Therapy 09/23/2019 10:00:00 AM EDT MEDENT ([facility]) [address] [address] 09/23/2019 12:00:00 AM EDT eCW1 ([facility]) [address] [address] 09/17/2019 12:00:00 AM EDT eCW1 ([facility]) [address] [place] [address] 09/16/2019 12:00:00 AM EDT eCW1 ([facility]) [address] [address] 09/09/2019 12:00:00 AM EDT eCW1 ([facility]) [address] [address] 07/23/2019 12:00:00 AM EDT eCW1 ([facility]) [address] [place] [address] 07/22/2019 12:00:00 AM EDT eCW1 ([facility]) [facility] GME Resident [address] [place] [address] 05/09/2019 12:00:00 AM EST eCW1 ([facility]) [address] [address] 05/03/2019 12:00:00 AM EST eCW1 ([facility]) [address] [address] 04/15/2019 12:00:00 AM EST eCW1 ([facility]) Immunizations Vaccine Date Status Description Data Source(s) INFLUENZA VIRUS VACCINE QUADRIVAL 0429-1922(6 MOS AND UP)/PF 02/23/2020 12:00:00 AM EDT completed [facility] pneumococcal polysaccharide PPV23 05/09/2019 04:05:00 PM EST comple ely eCW1 ([facility]) pneumococcal polysaccharide PPV23 05/09/2019 04:05:00 PM EST comple ely eCW1 ([facility]) pneumococcal polysaccharide PPV23 05/09/2019 04:05:00 PM EST comple ely eCW1 ([facility]) pneumococcal polysaccharide PPV23 05/09/2019 04:05:00 PM EST comple ely eCW1 ([facility]) Medications Medication Brand Name Start Date Product Form Dose Route Admi nistrative Instructions Pharmacy Instructions Status Indications Reaction Description Data Source(s) POLYETHYLENE GLYCOL 3350 142 MG/ML Oral Solution [Miralax] M iralax 04/10/2020 12:00:00 AM EST active M EDENT ([facility], ) Bisacodyl 5 MG Delayed Release Oral Tablet [Dulcolax] Dulcol ax 04/10/2020 12:00:00 AM EST ORAL active M EDSOUMYA ([facility], ) 17 gram/dose 04/10/2020 12:00:00 AM EST powder 510 USE DIRECTED BY DOCTOR FOR BOWEL PREP USE DIRECTED BY DOCTOR FOR BOWEL PREP SOLD: 04/19/2020 [facility] 20 mg 03/03/2020 12:00:00 AM EDT tablet 30 TAKE ONE-HALF TABLET TWO TIMES A DAY TAKE ONE-HALF TABLET TWO TIMES A DAY SOLD: 04/30/2020 [facility] 20 mg 03/03/2020 12:00:00 AM EDT tablet 30 TAKE ONE-HALF TABLET TWO TIMES A DAY TAKE ONE-HALF TABLET TWO TIMES A DAY SOLD: 04/01/2020 [facility] 20 mg 03/03/2020 12:00:00 AM EDT tablet 30 TAKE ONE-HALF TABLET TWO TIMES A DAY TAKE ONE-HALF TABLET TWO TIMES A DAY SOLD: 06/01/2020 [facility] 20 mg 03/03/2020 12:00:00 AM EDT tablet 30 TAKE ONE-HALF TABLET TWO TIMES A DAY TAKE ONE-HALF TABLET TWO TIMES A DAY SOLD: 03/03/2020 [facility] Clindamycin 150 MG Oral Capsule CLINDAMYCIN HCL 02/10/2020 12:00 :00 AM EDT capsule 22 TAKE 2 IMMEDIATELY, THEN TAKE TAKE ONE CAPSULE BY MOUTH THREE TIMES A DAY TAKE 2 IMMEDIATELY, THEN TAKE TAKE ONE C APSULE BY MOUTH THREE TIMES A DAY SOLD: 02/10/2020 [facility] atorvastatin 20 MG Oral Tablet ATORVASTATIN CALCIUM 02/08/2020 1 2:00:00 AM EDT tablet 30 TAKE ONE TABLET BY MOUTH EVERY D AY TAKE ONE TABLET BY MOUTH EVERY DAY SOLD: 04/10/2020 [facility] atorvastatin 20 MG Oral Tablet ATORVASTATIN CALCIUM 02/08/2020 1 2:00:00 AM EDT tablet 30 TAKE ONE TABLET BY MOUTH EVERY D AY TAKE ONE TABLET BY MOUTH EVERY DAY SOLD: 02/10/2020 [facility] atorvastatin 20 MG Oral Tablet ATORVASTATIN CALCIUM 02/08/2020 1 2:00:00 AM EDT tablet 30 TAKE ONE TABLET BY MOUTH EVERY D AY TAKE ONE TABLET BY MOUTH EVERY DAY SOLD: 05/11/2020 [facility] 25 mg 11/20/2019 12:00:00 AM EDT tablet 10 TAKE 1 TABLET BY MOUTH ONCE DAILY NEEDED TAKE 1 TABLET BY MOUTH ONCE DAILY NEEDED SOLD: 11/26/2019 [facility] 4 mg 09/23/2019 12:00:00 AM EDT tablet 90 TAKE ONE TABLET BY MOUTH THREE TIMES A DAY TAKE ONE TABLET BY MOUTH THREE TIMES A DAY SOLD: 09/25/2019 [facility] meloxicam 15 MG Oral Tablet [Mobic] Mobic 09/23/2019 12:00:00 AM EDT ORAL active MEDENT ([facility]) tizanidine 4 MG Oral Tablet Tizanidine HCL 09/23/2019 12:00:00 AM EDT ORAL completed MEDENT ([facility]) 15 mg 09/23/2019 12:00:00 AM EDT tablet 30 TAKE ONE TABLET BY MOUTH EVERY DAY AFTER A MEAL TAKE ONE TABLET BY MOUTH EVERY DAY AFTER A MEAL SOLD: 09/25/2019 [facility] atorvastatin 20 MG Oral Tablet [Lipitor] Lipitor 20 MG Lipit or 20 MG 09/09/2019 12:00:00 AM EDT 1.0 {tablet} active Li pitor 20 MG eCW1 ([facility]) 20 mg 09/09/2019 12:00:00 AM EDT tablet 30 TAKE 1/2 TABLET BY MOUTH TWO TIMES A DAY TAKE 1/2 TABLET BY MOUTH TWO TIMES A DAY SOLD: 01/18/2020 [facility] atorvastatin 20 MG Oral Tablet ATORVASTATIN CALCIUM 09/09/2019 1 2:00:00 AM EDT tablet 30 TAKE ONE TABLET BY MOUTH EVERY D AY TAKE ONE TABLET BY MOUTH EVERY DAY SOLD: 12/09/2019 [facility] 20 mg 09/09/2019 12:00:00 AM EDT tablet 30 TAKE 1/2 TABLET BY MOUTH TWO TIMES A DAY TAKE 1/2 TABLET BY MOUTH TWO TIMES A DAY SOLD: 12/18/2019 [facility] 10 mg 09/09/2019 12:00:00 AM EDT tablet 90 TAKE ONE TABLET BY MOUTH THREE TIMES A DAY NEEDED TAKE ONE TABLET BY MOUTH THREE TIMES A DAY NEEDED S OLD: 09/10/2019 [facility] 24 HR Nicotine 0.583 MG/HR Transdermal P atch [Nicoderm C-Q] Nicoderm CQ 14 MG/24HR Nicoderm CQ 14 MG/24HR 09/09/2019 12:00:00 AM EDT active 1 patch to skin eC1 ([facility]) atorvastatin 20 MG Oral Tablet ATORVASTATIN CALCIUM 09/09/2019 1 2:00:00 AM EDT tablet 30 TAKE ONE TABLET BY MOUTH EVERY D AY TAKE ONE TABLET BY MOUTH EVERY DAY SOLD: 09/10/2019 [facility] 14 mg/24 hr 09/09/2019 12:00:00 AM EDT patch 24 hour 28 APPLY ONE PATCH TO THE SKIN EVERY DAY APPLY ONE PATCH TO THE SKIN EVERY DAY SOLD: 09/10/2019 [facility] atorvastatin 20 MG Oral Tablet ATORVASTATIN CALCIUM 09/09/2019 1 2:00:00 AM EDT tablet 30 TAKE ONE TABLET BY MOUTH EVERY D AY TAKE ONE TABLET BY MOUTH EVERY DAY SOLD: 11/09/2019 [facility] 24 HR Nicotine 0.583 MG/HR Transdermal P atch [Nicoderm C-Q] Nicoderm CQ 14 MG/24HR Nicoderm CQ 14 MG/24HR 09/09/2019 12:00:00 AM EDT 1.0 {patch_to_skin} active Nicoderm CQ 14 MG/24 HR eCW1 ([facility]) sildenafil 25 MG Oral Tablet [Viagra] Viagra 25 MG Viagra 25 MG 09/09/2019 12:00:00 AM EDT 1.0 {tablet_as_needed} active Viagra 25 MG eCW1 ([facility]) atorvastatin 20 MG Oral Tablet ATORVASTATIN CALCIUM 09/09/2019 1 2:00:00 AM EDT tablet 30 TAKE ONE TABLET BY MOUTH EVERY D AY TAKE ONE TABLET BY MOUTH EVERY DAY SOLD: 10/10/2019 [facility] Lisinopril 20 MG Oral Tablet Lisinopril 20 MG 09/09/2019 12:00:00 AM E DT active 1/2 tablet eCW1 ([facility]) atorvastatin 20 MG Oral Tablet [Lipitor] Lipitor 20 MG Lipit or 20 MG 09/09/2019 12:00:00 AM EDT active 1 tablet eCW1 ([facility]) 20 mg 09/09/2019 12:00:00 AM EDT tablet 30 TAKE 1/2 TABLET BY MOUTH TWO TIMES A DAY TAKE 1/2 TABLET BY MOUTH TWO TIMES A DAY SOLD: 09/10/2019 [facility] 20 mg 09/09/2019 12:00:00 AM EDT tablet 30 TAKE 1/2 TABLET BY MOUTH TWO TIMES A DAY TAKE 1/2 TABLET BY MOUTH TWO TIMES A DAY SOLD: 10/18/2019 [facility] atorvastatin 20 MG Oral Tablet [Lipitor] Lipitor 20 MG Lipit or 20 MG 09/09/2019 12:00:00 AM EDT active 1 tablet eCW1 ([facility]) sildenafil 25 MG Oral Tablet [Viagra] Viagra 25 MG Viagra 25 MG 09/09/2019 12:00:00 AM EDT active 1 tablet as needed eCW1 ([facility]) atorvastatin 20 MG Oral Tablet [Lipitor] Lipitor 20 MG Lipit or 20 MG 09/09/2019 12:00:00 AM EDT 1.0 {tablet} active Li pitor 20 MG eCW1 ([facility]) sildenafil 25 MG Oral Tablet [Viagra] Viagra 25 MG Viagra 25 MG 09/09/2019 12:00:00 AM EDT active 1 tablet as needed eCW1 ([facility]) 24 HR Nicotine 0.583 MG/HR Transdermal P atch [Nicoderm C-Q] Nicoderm CQ 14 MG/24HR Nicoderm CQ 14 MG/24HR 09/09/2019 12:00:00 AM EDT active 1 patch to skin eCW1 ([facility]) 20 mg 09/09/2019 12:00:00 AM EDT tablet 30 TAKE 1/2 TABLET BY MOUTH TWO TIMES A DAY TAKE 1/2 TABLET BY MOUTH TWO TIMES A DAY SOLD: 11/18/2019 [facility] 24 HR Nicotine 0.583 MG/HR Transdermal P atch [Nicoderm C-Q] Nicoderm CQ 14 MG/24HR Nicoderm CQ 14 MG/24HR 09/09/2019 12:00:00 AM EDT 1.0 {patch_to_skin} active Nicoderm CQ 14 MG/24 HR eCW1 ([facility]) atorvastatin 20 MG Oral Tablet ATORVASTATIN CALCIUM 09/09/2019 1 2:00:00 AM EDT tablet 30 TAKE ONE TABLET BY MOUTH EVERY D AY TAKE ONE TABLET BY MOUTH EVERY DAY SOLD: 01/08/2020 [facility] sildenafil 25 MG Oral Tablet [Viagra] Viagra 25 MG Viagra 25 MG 09/09/2019 12:00:00 AM EDT 1.0 {tablet_as_needed} active Viagra 25 MG eCW1 ([facility]) 10 mg 07/25/2019 12:00:00 AM EDT tablet 30 TAKE ONE TABLET BY MOUTH EVERY DAY TAKE ONE TABLET BY MOUTH EVERY DAY SOLD: 08/26/2019 [facility] 10 mg 07/25/2019 12:00:00 AM EDT tablet 30 TAKE ONE TABLET BY MOUTH EVERY DAY TAKE ONE TABLET BY MOUTH EVERY DAY SOLD: 07/26/2019 [facility] Lisinopril 10 MG Oral Tablet LISINOPRIL 07/25/2019 12:00:00 AM EDT tab let 30 TAKE ONE TABLET BY MOUTH EVERY DAY TAKE ONE TABLET BY MOUTH EVERY DAY SOLD: 02/17/2020 [facility] 10 mg 11/26/2018 12:00:00 AM EDT tablet 30 TAKE ONE TABLET BY MOUTH EVERY DAY TAKE ONE TABLET BY MOUTH EVERY DAY SOLD: 06/25/2019 [facility] 10 mg 11/26/2018 12:00:00 AM EDT tablet 30 TAKE ONE TABLET BY MOUTH EVERY DAY TAKE ONE TABLET BY MOUTH EVERY DAY SOLD: 05/27/2019 [facility] Insurance Providers Payer name Policy type / Coverage type Policy ID Covered alliance party ID Covered alliance party's relationship to wetzel Policy Wetzel Plan Information [facility] COMMUNITY PLAN [facility] [id number] SP [id number] [employer] COMMUNITY PLAN [facility] [id number] SP [id number] [facility] COMMUNITY PLAN [facility] [id number] SP [id number] [facility] [id number] [id number] [facility] O [id number] S [id number] ANSI-Medicaid [id number] ANSI-Medicaid [id number] ANSI-Medicaid [id number] ANSI-Medicaid [id number] ANSI-Medicaid [id number] ANSI-Medicaid [id number] [employer] COMMUNITY PLAN XIX -RECURRING [id number] [id number] 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 [id number] SP [id number] Problems, Conditions, and Diagnoses Code Display Name Description Problem Type Effective Dates Data Source(s) Z80.0 590656209 Family history of colon cancer in father Problem 04/17/2020 12:00:00 AM EST eCW1 ([facility]) Z12.5 [id number] Prostate cancer screening Problem 04/17/2020 12:00:00 AM EST eCW1 ([facility]) K63.5 [id number] Polyp of colon, unspecified part of colon, unspecified type Problem 04/17/2020 12:00:00 AM EST eCW1 ([facility]) 987049914 Pure hypercholesterolemia Pure hypercholesterolemia Pr oblem 09/23/2019 12:00:00 AM EDT MEDENT ([facility] ) [id number] Essential hypertension Essential hypertension Problem 09/23/2019 12:00:00 AM EDT MEDENT ([facility] ) Surgeries/Procedures Procedure Description Date Indications Data Source(s) THERAPEUTIC PX 1/> AREAS EACH 15 MIN EXERCISES 12:00:00 AM EDT MEDENT ([facility] ) THERAPEUTIC PX 1/> AREAS EACH 15 MIN EXERCISES 12:00:00 AM EDT MEDENT ([facility] ) MANUAL THERAPY TQS 1/> REGIONS EACH 15 MINUTES 12:00:00 AM EDT MEDENT ([facility] ) THERAPEUTIC PX 1/> AREAS EACH 15 MIN EXERCISES 12:00:00 AM EDT MEDENT ([facility] ) MANUAL THERAPY TQS 1/> REGIONS EACH 15 MINUTES 12:00:00 AM EDT MEDENT ([facility] ) Physical Therapy Eval - Low Complexity 11/22/2019 12:0 0:00 AM EDT MEDENT ([facility] ) THERAPEUTIC PX 1/> AREAS EACH 15 MIN EXERCISES 12:00:00 AM EDT MEDENT ([facility] ) MANUAL THERAPY TQS 1/> REGIONS EACH 15 MINUTES 12:00:00 AM EDT MEDENT ([facility] ) MANUAL THERAPY TQS 1/> REGIONS EACH 15 MINUTES 12:00:00 AM EDT [facility] ([facility] [facility] ) THERAPEUTIC PX 1/> AREAS EACH 15 MIN EXERCISES 12:00:00 AM EDT MEDENT ([facility] ) THERAPEUTIC PX 1/> AREAS EACH 15 MIN EXERCISES 12:00:00 AM EDT MEDENT ([facility] ) MANUAL THERAPY TQS 1/> REGIONS EACH 15 MINUTES 020 12:00:00 AM EDT MEDENT ([facility] ) Physical Therapy Eval - Low Complexity 10/17/2019 12:0 0:00 AM EDT MEDENT ([facility] ) Needle electromyography, each extremity, with related paraspinal areas, when performed, done with nerve conduction, amplitude and latency/velocity study; complete, five or more muscles studied, innervated by three or more nerves or four or more spinal levels (list separately in addition to the code for primary procedure). 10/04/2019 12:00:00 AM EDT MEDEN T ([facility] ) 17374 Nerve conduction studies 13 or more studies NEW 201210/04/2019 12:00:00 AM EDT MEDENT ([facility] ) RADEX SPINE CRV COMPL W/OBLQ&FLEX&/XTN STDS 09/23/2019 12:00:00 AM EDT MEDENT ([facility] ) RADEX SPINE LUMBOSACRAL MINIMUM 4 VIEWS 09/23/2019 12: 00:00 AM EDT MEDENT ([facility] ) PHYSICIAN TELEPHONE EVALUATION 11-20 MIN 09/23/2019 12 :00:00 AM EDT eCW1 ([facility]) EKG- ALL NON MCR/TRI PAYERS 09/09/2019 12:00:00 AM EDT eCW1 ([facility]) Pneumococcal Adult 0.5mL (Pneumovax 23) 05/09/2019 12: 00:00 AM EST eCW1 ([facility]) IMMUNIZATION ADMIN 05/09/2019 12:00:00 AM EST eCW1 ([facility]) Results ID Date Data Source [id number] 06/04/2020 02:00:00 PM EST [facility] Name Value Range Interpretation Code Description Data Monica rce(s) Supporting Document(s) SARS coronavirus 2 RNA Not Detected [facility] This lab was ordered by [facility] and reported by [facility]. ID Date Data Source [id number] 05/17/2020 09:00:00 AM EST [facility] Name Value Range Interpretation Code Description Data Monica rce(s) Supporting Document(s) SARS coronavirus 2 RNA Not Detected [facility] This lab was ordered by [facility] and reported by [facility]. ID Date Data Source PLZ HAND COMPLETE 04/17/2020 12:00:00 AM EST eCW1 ([facility]) Name Value Range Interpretation Code Description Data Monica rce(s) Supporting Document(s) PLZ HAND COMPLETE eCW1 ([facility]) ID Date Data Source [id number] 02/18/2020 11:27:00 AM EDT [facility] [address] [place] [address] PHONE: [phone] FAX: [phone] Name .................. : OG MATUTE Acct Number.................. : [id number] ROOM. ................. : Number ................... : [id number] Stay type ............. : CLINIC Discharge Date......... ... : 02/15/20 Admit Date ......... : 02/15/20 Admit Phys .................... : JEFF NUGENT Date of ....... : 1970 Family Phys ................... : Phone .................. : [phone] Age ................................ : 49 Film# .................. .:[id number] Sex ................................. : M Unsigned transcriptions are preliminary reports and do not represent a medical or legal document MANDIBLE COMP - BILATERAL [id number] COMPLETE:02/15/20 11:11 53823 (REASON FOR PROCEDURE PAIN BILATERAL MANDIBLE SERIES: 4-VIEWS INDICATION: Pain, recent tooth pulled, evaluate for bone infection. FINDINGS: 4-views of the mandible are submitted. No fracture. No dislocation. No lucency identified involving the mandible. Absence of a right lower premolar. IMPRESSION: No fracture. No evidence of a bone infection. Absence of a right lower premolar. Electr onically Reviewed and Signed By Eriberto Goncalevs MD , 02/18/20 11:27, BR[facility] Transcribe Initials: MÓNICA , Transcribe Date: 02/15/20 12:26, Dictation Date: Page 1 of 1 Name Value Range Interpretation Code Description Data Monica rce(s) Supporting Document(s) ID Date Data Source [id number] 10/09/2019 12:00:00 AM EDT [facility] Trudy THOMPSON Patient Name: JUJU FOLEY[address] [place] [address] Date of : 1970[place] [address] Date of Exam: 10/09/2019PH#: Fax: [phone] EXAM: MRI CERVICAL SPINE WITHOUT CONTRASTPROCEDURE INFORMATION:Exam: MR Cervical Spine Without ContrastExam date and time: 10/09/2019 10:50 AM Age: 48 years oldClinical indication: Patient HX: PT C/O bilateral hand numbnessTECHNIQUE: Imaging protocol: Multiplanar magnetic resonance images of thecervical spine without contrast.COMPARISON: MRI CERVICAL SPINE WITHOUT CONTRAST 03/15/2016 4:05 PMFINDINGS:Vertebrae: The cervical vertebral bodies are normal in height, withoutabnormal subluxation. A 6mm STIR hyperintense lesion is identifiedinvolving the C5 vertebral body. This is nonspecific as to etiology, butstable compared to the prior study. Straightening of the lordotic curvatureof the cervical spine. This can be associated with muscle spasms.Spinal cord: There is a focus of increased STIR signal intensity within thecervical spinal cord at the C7 vertebral level, although this is notconfirmed on axial and sagittal T2 images. Artifact is suggested. No spinalcord edema within the remaining cervical spinal cord.Multilevel findings: Degenerative disc disease is noted at multiplecervical levels, with a decrease in the T2 signal intensity of the discs aswell as disc bulge/osteophyte complexes.C2-C3: There is no significant narrowing of the thecal sac or neuralforamina. No posterior disc herniation.C3-C4: There is no significant narrowing of the thecal sac or neuralforamina. No posterior disc herniation.C4-C5: There is no significant la rowing of the thecal sac or neuralforamina. No posterior disc herniation.C5-C6: Mild disc bulging with mild stable narrowing of the thecal sac. Nosignificant neural foraminal narrowing bilateral. A small annular tear isvisualized of the posterior aspect of the disc.C6-C7: Mild disc bulging with mild stable narrowing of the thecal sac. Mildbilateral neural foraminal narrowing.C7-T1: There is no significant narrowing of the thecal sac or neuralforamina. No posterior disc herniation. Vertebral arteries: Expected flowvoids in the vertebral arteries.Soft tissues: No significant prevertebral soft tissue swe lling.IMPRESSION:1. Degenerative changes are noted at multiple cervical levels, as describedabove.2. Mild stable narrowing of the thecal sac at C5-C6 and C6- C7.3. Mild bilateral neural foraminal narrowing at C6-C7.4. A 6mm lesion is identified involving the C5 vertebral body. This isnonspecific as to etiology, but stable compared to the prior study.5. Straightening of the lordotic curvature of the cervical spine. This canbe associated with muscle spasms.Thank you for allowing us to participate in the care of your patient.Dictated and Authenticated by: Tommy Mabry MD 10/09/2019 5:35 PMEastern Time ([place] & Thi)ArthurV/Arvin you for referring JUJU FOLEY to our office. Electronically Signed - [facility] 10/10/19 8:32 Name Value Range Interpretation Code Description Data Monica rce(s) Supporting Document(s) ID Date Data Source TESTOSTERONE FREE & TOTAL 09/09/2019 12:00:00 AM EDT eCW1 (Replaced by [facility]) Name Value Range Interpretation Code Description Data Monica rce(s) Supporting Document(s) 10.6 6.8-21.5 TESTOSTERONE FREE (DIRECT ) eCW1 ([facility]) 577.0 [id number] TESTOSTERONE TOTAL FOR T& D eCW1 ([facility]) ID Date Data Source LIPID PANEL (CARDIAC RISK) 09/09/2019 12:00:00 AM EDT eCW1 ( [facility]) Name Value Range Interpretation Code Description Data Monica rce(s) Supporting Document(s) Cholesterol in LDL [Mass/volume] in Serum or Plasma by calculation 130 <100 LDL CHOLESTEROL eCW1 ([facility]) Triglyceride [Mass/volume] in Serum or Plasma by calculation 45 <150 TRIGLYCERIDES LEVEL eCW1 ([facility]) Cholesterol [Moles/volume] in Serum or Plasma 218 <200 CHOLESTEROL LEVEL eCW1 ([facility]) Cholesterol in HDL [Moles/volume] in Serum or Plasma 79 >40 HDL CHOLESTEROL eCW1 ([facility]) 139 NON-HDL-C eCW1 ([facility]) 2.759 <5 CHOLESTEROL RISK RATIO eCW1 (Replaced by [facility]) ID Date Data Source VITAMIN B12 LEVEL 09/09/2019 12:00:00 AM EDT eCW1 ([facility]) Name Value Range Interpretation Code Description Data Monica rce(s) Supporting Document(s) [id number] VITAMIN B12 LEVEL eCW1 ([facility]) ID Date Data Source FREE T4 & TSH PANEL 09/09/2019 12:00:00 AM EDT eCW1 ([facility]) Name Value Range Interpretation Code Description Data Monica rce(s) Supporting Document(s) 0.88 0.76-1.46 FREE T4 eCW1 ([facility]) 3.130 0.358-3.740 THYROID STIMULATING HORM ONE eCW1 ([facility]) ID Date Data Source FSH & LH EVAL 09/09/2019 12:00:00 AM EDT eCW1 ([facility]) Name Value Range Interpretation Code Description Data Monica rce(s) Supporting Document(s) 4.8 1.5-9.3 LUTEINIZING HORMONE eCW1 ([facility]) 6.5 1.4-18.1 FOLLICLE STIMULATING HORM ONE eCW1 ([facility]) ID Date Data Source Comprehensive Metabolic Profile (CMP) 09/09/2019 12:00:00 AM EDT eCW1 ([facility]) Name Value Range Interpretation Code Description Data Monica rce(s) Supporting Document(s) 97 70-100 GLUCOSE, FASTING eCW1 ([facility]) 14 7-18 BLOOD UREA NITROGEN eCW1 ([facility]) 138 136-145 SODIUM LEVEL eCW1 ([facility]) > 60.0 >60 GLOMERULAR FILTRATION RATE eCW 1 ([facility]) 0.67 0.70-1.30 CREATININE FOR GFR eCW1 ([facility]) 4.5 3.5-5.1 POTASSIUM SERUM eCW1 ([facility]) 27 21-32 CARBON DIOXIDE LEVEL eCW1 ([facility]) 106 98-107 CHLORIDE LEVEL eCW1 ([facility]) 9.2 8.5-10.1 CALCIUM LEVEL eCW1 ([facility]) 0.5 0.2-1.0 BILIRUBIN,TOTAL eCW1 ([facility]) 24 12-78 ALT/SGPT eCW1 ([facility]) 20 7-37 AST/SGOT eCW1 ([facility]) 50 45-117 ALKALINE PHOSPHATASE eCW1 ([facility]) 3.9 3.2-5.2 ALBUMIN eCW1 ([facility]) 1.22 1.00-1.93 ALBUMIN/GLOBULIN RATIO eCW1 (Replaced by [facility]) 7.1 6.4-8.2 TOTAL PROTEIN eCW1 ([facility]) ID Date Data Source CBC with Differential 09/09/2019 12:00:00 AM EDT eCW1 ([facility]) Name Value Range Interpretation Code Description Data Monica rce(s) Supporting Document(s) 6.7 4.0-10.0 WHITE BLOOD COUNT eCW1 ([facility]) 14.0 13.5-17.5 HEMOGLOBIN eCW1 ([facility]) 96.3 80.0-96.0 MEAN CORPUSCULAR VOLUME e CW1 ([facility]) 4.37 4.30-6.10 RED BLOOD COUNT eCW1 ([facility]) 42.1 42.0-52.0 HEMATOCRIT eCW1 ([facility]) 33.3 32.0-36.5 MEAN CORPUSCULAR HGB CONC eCW1 ([facility]) 13.8 11.5-14.5 RED CELL DISTRIBUTION WID TH eCW1 ([facility]) 32.0 27.0-33.0 MEAN CORPUSCULAR HEMOGLOB IN eCW1 ([facility]) 49.5 36.0-66.0 NEUTROPHILS % eCW1 ([facility]) 35.0 24.0-44.0 LYMPH % eCW1 ([facility]) 319 150-450 PLATELET COUNT, AUTOMATED eCW1 ([facility]) 0.9 0.0-3.0 EOS % eCW1 ([facility]) 3.3 1.5-8.5 NEUTROPHILS # eCW1 ([facility]) 0.3 0.0-1.0 BASO % eCW1 ([facility]) 14.0 0.0-5.0 MONO % eCW1 ([facility]) 0.0 0.0-0.2 BASO # eCW1 ([facility]) 2.3 1.5-5.0 LYMPH # eCW1 ([facility]) 0.1 0.0-0.5 EOS # eCW1 ([facility]) 0.9 0.0-0.8 MONO # eCW1 ([facility]) Procedure Social History Code Duration Value Status Description Data Source(s ) Smoking 04/17/2020 12:00:00 AM EST Current Smoker completed Curre nt Smoker eCW1 ([facility]) Smoking 09/23/2019 12:00:00 AM EDT Current Smoker completed Curre nt Smoker eCW1 ([facility]) Smoking 09/23/2019 12:00:00 AM EDT Current Smoker completed Curre nt Smoker eCW1 ([facility]) Vital Signs ID Date Data Source UNK Name Value Range Interpretation Code Description Data Source(s) Diastolic blood pressure 82 mm[Hg] 82 mm[Hg] eCW1 ([facility]) Systolic blood pressure 122 mm[Hg] 122 mm[Hg] e CW1 ([facility]) Body temperature 98.3 [degF] 98.3 [degF] eCW1 ( [facility]) Respiratory rate 18 /min 18 /min eCW1 ([facility]) Heart rate 99 /min 99 /min eCW1 ([facility]) Body mass index (BMI) [Ratio] 24.51 kg/m2 24.51 kg/m2 eCW1 ([facility]) Body height 64 [in_i] 64 [in_i] eCW1 ([facility]) Body weight 142.8 [lb_av] 142.8 [lb_av] eCW1 (Replaced by [facility]) Body surface area Derived from formula 1.68 m2 1.68 m2 MEDENT ([facility], ) Body weight 63.504 kg 63.504 [facility] [place] body weight 130 [lb_av] 130 [lb_av] [facility] Body mass index (BMI) [Ratio] 24.0 kg/m2 24.0 k g/m2 [facility] ([facility]) Body weight 140.00 [lb_av] 140.00 [lb_av] [facility] Body height 64 [in_i] 64 [in_i] [facility] ([facility], ) 5'4" Diastolic blood pressure 92 mm[Hg] 92 mm[Hg] [facility] ([facility]) Systolic blood pressure 158 mm[Hg] 158 mm[Hg] [facility] ([facility]) Oxygen saturation in Arterial blood by Pulse oximetry 98 % 98 % [facility] ([facility]) Body temperature 97.6 [degF] 97.6 [degF] [facility] ([facility]) Heart rate 87 /min 87 /min [facility] ([facility]) Diastolic blood pressure 90 mm[Hg] 90 mm[Hg] [facility] ([facility]) Systolic blood pressure 152 mm[Hg] 152 mm[Hg] [facility] ([facility]) Body mass index (BMI) [Ratio] 22.8 kg/m2 22.8 k g/m2 [facility] ([facility]) Body weight 137.00 [lb_av] 137.00 [lb_av] [facility] Body height 65 [in_i] 65 [in_i] [facility] 5'5" Body temperature 97.9 [degF] 97.9 [degF] [facility] ([facility]) Body mass index (BMI) [Ratio] 24.06 kg/m2 24.06 kg/m2 W1 ([facility]) Body height 64 [in_us] 64 [in_us] W1 ([facility]) Body weight Measured 140.2 [lb_av] 140.2 [lb_av ] W1 ([facility]) Body mass index (BMI) [Ratio] 24.9 kg/m2 24.9 k g/m2 [facility] ([facility]) Body weight 145.00 [lb_av] 145.00 [lb_av] MEDEN T ([facility]) Body height 64 [in_i] 64 [in_i] MEDENT ([facility]) 5'4" Body temperature 97.4 [degF] 97.4 [degF] MEDENT ([facility]) Diastolic blood pressure 78 mm[Hg] 78 mm[Hg] eCW1 ([facility]) Systolic blood pressure 138 mm[Hg] 138 mm[Hg] e CW1 ([facility]) Body temperature 97.5 [degF] 97.5 [degF] eCW1 ( [facility]) Respiratory rate 17 /min 17 /min eCW1 ([facility]) Heart rate 88 /min 88 /min eCW1 ([facility]) Body mass index (BMI) [Ratio] 23.99 kg/m2 23.99 kg/m2 eCW1 ([facility]) Body height 64 [in_us] 64 [in_us] eCW1 ([facility]) Body weight Measured 139.8 [lb_av] 139.8 [lb_av ] eCW1 ([facility]) Diastolic blood pressure 78 mm[Hg] 78 mm[Hg] eCW1 ([facility]) Systolic blood pressure 124 mm[Hg] 124 mm[Hg] e CW1 ([facility]) Body temperature 98.9 [degF] 98.9 [degF] eCW1 ( [facility]) Respiratory rate 18 /min 18 /min eCW1 ([facility]) Heart rate 103 /min 103 /min eCW1 ([facility]) Body mass index (BMI) [Ratio] 24.30 kg/m2 24.30 kg/m2 eCW1 ([facility]) Body height 64 [in_us] 64 [in_us] eCW1 ([facility]) Body weight Measured 141.6 [lb_av] 141.6 [lb_av ] eCW1 ([facility]) Patient Treatment Plan of Care Planned Activity Planned Date Details Description Data Source (s) atorvastatin 20 MG Oral Tablet [Lipitor] 09/09/2019 12:00:00 AM EDT eCW1 ([facility]) atorvastatin 20 MG Oral Tablet [Lipitor] 09/09/2019 12:00:00 AM EDT eCW1 ([facility]) atorvastatin 20 MG Oral Tablet [Lipitor] 09/09/2019 12:00:00 AM EDT eCW1 ([facility]) 24 HR Nicotine 0.583 MG/HR Transdermal Patch [Nicoderm C-Q] 09/09/2019 12:00:00 AM EDT eCW1 ([facility]) sildenafil 25 MG Oral Tablet [Viagra] 09/09/2019 12:00:00 AM EDT eCW1 ([facility]) Lisinopril 20 MG Oral Tablet 09/09/2019 12:00:00 AM EDT eCW1 ([facility]) atorvastatin 20 MG Oral Tablet [Lipitor] 09/09/2019 12:00:00 AM EDT eCW1 ([facility])
[2020-06-09] MEDS ORDERED: LIDOCAINE 2% 100MG/5ML SDV (FOR ANES.) As Ordered ONE (07:24)
[2020-06-09] MEDS ORDERED: propofoL 200 MG/20 ML VIAL As Ordered ONE (07:24)
--- NOTE | 2020-06-09 08:09 | ROOR ---
Patient Name: Óscar Marcus Procedure Date: 06/09/2020 7:27 AM Date of : 1970 Age: 49 Room: [facility] Gender: Male Note Status: Finalized Procedure: Colonoscopy Indications: High risk colon cancer surveillance: Personal history of colonic polyps, Family history of colon cancer in a first-degree relative before age 60 years Providers: Pato Segundo MD Referring MD: Leandra ARCHER Requesting Provider: Medicines: Monitored Anesthesia Care Complications: No immediate complications. Procedure: Pre-Anesthesia Assessment: - Prior to the procedure, a History and Physical was performed, and patient medications and allergies were reviewed. The patient is competent. The risks and benefits of the procedure and the sedation options and risks were discussed with the patient. All questions were answered and informed consent was obtained. Patient identification and proposed procedure were verified by the physician, the nurse and the anesthesiologist in the procedure room. Mental Status Examination: alert and oriented. Airway Examination: normal oropharyngeal airway and neck mobility. Respiratory Examination: clear to auscultation. CV Examination: normal. Prophylactic Antibiotics: The patient does not require prophylactic antibiotics. Prior Anticoagulants: The patient has taken no previous anticoagulant or antiplatelet agents. ASA Grade Assessment: II - A patient with mild systemic disease. After reviewing the risks and benefits, the patient was deemed in satisfactory condition to undergo the procedure. The anesthesia plan was to use monitored anesthesia care (MAC). Immediately prior to administration of medications, the patient was re-assessed for adequacy to receive sedatives. The heart rate, respiratory rate, oxygen saturations, blood pressure, adequacy of pulmonary ventilation, and response to care were monitored throughout the procedure. The physical status of the patient was re-assessed after the procedure. The Colonoscope was introduced through the anus and advanced to the terminal ileum, with identification of the appendiceal orifice and IC valve. The colonoscopy was performed without difficulty. The patient tolerated the procedure well. The quality of the bowel preparation was good. The terminal ileum, ileocecal valve, appendiceal orifice, and rectum were photographed. Scope insertion time was 2 minutes. Scope withdrawal time was 9 minutes. The total duration of the procedure was 12 minutes. Findings: The perianal and digital rectal examinations were normal. The terminal ileum appeared normal. Multiple sessile, non-bleeding polyps were found in the transverse colon and ascending colon. The polyps were 2 to 5 mm in size. Few of these polyps were removed with a cold snare. Resection and retrieval were complete. Verification of patient identification for the specimen was done by the physician and nurse using the patient's name, date and medical record number. Estimated blood loss was minimal. Non-bleeding external and internal hemorrhoids were found during retroflexion. The hemorrhoids were medium-sized. Impression: - The examined portion of the ileum was normal. - Multiple 2 to 5 mm, non-bleeding polyps in the transverse colon and in the ascending colon, removed with a cold snare. Resected and retrieved. - Non-bleeding external and internal hemorrhoids. Recommendation: - Patient has a contact number available for emergencies. The signs and symptoms of potential delayed complications were discussed with the patient. Return to normal activities tomorrow. Written discharge instructions were provided to the patient. - High fiber diet. - Continue present medications. - Await pathology results. - Check Genetic testing for FAP and Le syndromes due to family history at appointment to be scheduled. - Return to GI clinic in [facility] (address [address], [address], [place] [address]) in 4 -- 6 weeks. Please call GI clinic @ [phone] for apppointment date and time. - Return to primary care physician. Procedure Code(s): --- Professional --- 73456, Colonoscopy, flexible; with removal of tumor(s), polyp(s), or other lesion(s) by snare technique Diagnosis Code(s): --- Professional --- Z86.010, Personal history of colonic polyps K64.8, Other hemorrhoids K63.5, Polyp of colon Z80.0, Family history of malignant neoplasm of digestive organs CPT copyright 2019 [employer] [place] [employer]. All rights reserved. The codes documented in this report are preliminary and upon electrician marine review may be revised to meet current compliance requirements. Pato Segundo MD Pato Segundo MD 06/09/2020 8:08:53 AM Electronically signed by Pato Segundo MD Number of Addenda: 0 Note Initiated On: 06/09/2020 7:27 AM Estimated Blood Loss: Estimated blood loss was minimal.
[2020-06-09 08:14] VITALS: BP 114/71
== END 2020-06-09 08:16 | disposition home or self-care (01) ==
LOC: M OPP 06:41
PROVIDERS: ATTEND Internal Medicine Gastroenterology
DX: Z12.11 Encounter for screening for malignant neoplasm of colon (principal); Z86.010 Personal history of colon polyps; Z80.0 Family history of malignant neoplasm of digestive organs; D12.6 Benign neoplasm of colon, unspecified; K64.8 Other hemorrhoids; I10 Essential (primary) hypertension; E78.5 Hyperlipidemia, unspecified; F17.210 Nicotine dependence, cigarettes, uncomplicated; Z88.0 Allergy status to penicillin; Z91.013 Allergy to seafood; Z79.899 Other long term (current) drug therapy; Z83.3 Family history of diabetes mellitus; Z82.49 Family history of ischemic heart disease and other diseases of the circulatory system; Z80.52 Family history of malignant neoplasm of bladder

== ENCOUNTER → 2020-09-23 | Outpatient (REF) | payer OTHER ==
[~2020-09-23] MED LIST changes: +LISI10TA22 PO; -LISI10TA4 PO; -NS 1,000 ML IV ONE
[2020-09-23 10:52] LABS: BASO % 0.4 % (0.0-1.0); EOS # 0.1 10^3/uL (0.0-0.5); EOS % 1.2 % (0.0-3.0); HEMATOCRIT 42.6 % (42.0-52.0); HEMOGLOBIN 14.2 g/dl (13.5-17.5); LYMPH # 2.4 10^3/uL (1.5-5.0); LYMPH % 35.9 % (24.0-44.0); MEAN CORPUSCULAR HEMOGLOBIN 32.5 pg (27.0-33.0); MEAN CORPUSCULAR HGB CONC 33.3 g/dl (32.0-36.5); MEAN CORPUSCULAR VOLUME 97.5 fl (80.0-96.0); MONO # 1.1 10^3/uL (0.0-0.8); MONO % 16.1 % (2.0-8.0); NEUTROPHILS # 3.1 10^3/uL (1.5-8.5); NEUTROPHILS % 46.1 % (36.0-66.0); PLATELET COUNT, AUTOMATED 282 10^3/uL (150-450); RED BLOOD COUNT 4.37 10^6/uL (4.30-6.10); WHITE BLOOD COUNT 6.7 10^3/uL (4.0-10.0)
[2020-09-23 11:25] LABS: FERRITIN 111 NG/ML (26-388); IRON (FE) 141 UG/DL (65-175)
== END ==
LOC: M SFHCPLAZ 08:23
PROVIDERS: ATTEND Physician Assistant Medical
DX: I10 Essential (primary) hypertension (principal)

== ENCOUNTER → 2021-04-16 | Outpatient (CLI) | payer OTHER ==
[2021-04-16 17:13] LABS: BASO % 0.5 % (0.0-1.0); EOS # 0.1 10^3/uL (0.0-0.5); EOS % 0.8 % (0.0-3.0); HEMOGLOBIN 13.3 g/dl (13.5-17.5); LYMPH # 3.1 10^3/uL (1.5-5.0); LYMPH % 37.3 % (24.0-44.0); MEAN CORPUSCULAR HGB CONC 33.3 g/dl (32.0-36.5); MEAN CORPUSCULAR VOLUME 96.2 fl (80.0-96.0); MONO # 1.2 10^3/uL (0.0-0.8); MONO % 14.2 % (2.0-8.0); NEUTROPHILS # 3.9 10^3/uL (1.5-8.5); PLATELET COUNT, AUTOMATED 301 10^3/uL (150-450); RED BLOOD COUNT 4.16 10^6/uL (4.30-6.10); WHITE BLOOD COUNT 8.3 10^3/uL (4.0-10.0)
[2021-04-16 17:35] LABS: ALBUMIN 3.9 GM/DL (3.2-5.2); ALT/SGPT 31 U/L (12-78); BILIRUBIN,TOTAL 0.4 MG/DL (0.2-1.0); BLOOD UREA NITROGEN 15 MG/DL (7-18); CALCIUM LEVEL 9.3 MG/DL (8.5-10.1); CARBON DIOXIDE LEVEL 26 MEQ/L (21-32); CHLORIDE LEVEL 107 MEQ/L (98-107); CHOLESTEROL LEVEL 156 MG/DL (<200); CREATININE FOR GFR 0.64 MG/DL (0.70-1.30); FERRITIN 75 NG/ML (26-388); GLOMERULAR FILTRATION RATE > 60.0 (>60); GLUCOSE, FASTING 96 MG/DL (70-100); HDL CHOLESTEROL 78 MG/DL (>40); IRON (FE) 58 UG/DL (65-175); LDL CHOLESTEROL 66 MG/DL (<100); NON-HDL-C 78 MG/DL; POTASSIUM SERUM 4.8 MEQ/L (3.5-5.1); SODIUM LEVEL 138 MEQ/L (136-145); TRIGLYCERIDES LEVEL 59 MG/DL (<150)
== END ==
LOC: M PLALAB 15:30
PROVIDERS: ATTEND Physician Assistant Medical
DX: E78.5 Hyperlipidemia, unspecified (principal); I10 Essential (primary) hypertension; Z12.5 Encounter for screening for malignant neoplasm of prostate

== ENCOUNTER → 2021-06-25 | Outpatient (CLI) | payer OTHER ==
[~2021-06-25] MED LIST changes: +E-Z-PAQUE 96% w/w SUSP 176GM BTL As Ordered ONE
== END ==
LOC: M RAD 08:27
PROVIDERS: ATTEND Physician Assistant Medical
DX: D61.9 Aplastic anemia, unspecified (principal)

== ENCOUNTER 2021-07-12 12:46 | Emergency (ER) | payer OTHER ==
[~2021-07-12] VITALS: Ht 162.6 cm; Wt 66.5 kg
[~2021-07-12 12:46] MED LIST changes: -E-Z-PAQUE 96% w/w SUSP 176GM BTL As Ordered ONE
[2021-07-12] MEDS ORDERED: GABA-1171 PO (12:59)
[2021-07-12] MEDS ORDERED: FERR32TA PO (12:59)
[2021-07-12] MEDS ORDERED: AMLO2.5T3 PO (12:59)
[2021-07-12 16:33] LABS: BASO % 0.4 % (0.0-1.0); EOS # 0.1 10^3/uL (0.0-0.5); EOS % 0.8 % (0.0-3.0); HEMATOCRIT 38.7 % (42.0-52.0); HEMOGLOBIN 13.4 g/dl (13.5-17.5); LYMPH % 40.1 % (24.0-44.0); MEAN CORPUSCULAR HEMOGLOBIN 32.4 pg (27.0-33.0); MEAN CORPUSCULAR HGB CONC 34.6 g/dl (32.0-36.5); MEAN CORPUSCULAR VOLUME 93.7 fl (80.0-96.0); MONO # 0.8 10^3/uL (0.0-0.8); MONO % 10.7 % (2.0-8.0); NEUTROPHILS # 3.6 10^3/uL (1.5-8.5); NEUTROPHILS % 47.7 % (36.0-66.0); PLATELET COUNT, AUTOMATED 276 10^3/uL (150-450); RED BLOOD COUNT 4.13 10^6/uL (4.30-6.10); WHITE BLOOD COUNT 7.6 10^3/uL (4.0-10.0)
[2021-07-12 16:50] LABS: CK-MB VALUE MASS 1.3 NG/ML (<3.6); MB/CK RELATIVE INDEX 0.74 (< OR =4)
[2021-07-12 16:59] LABS: ALT/SGPT 30 U/L (12-78); BILIRUBIN,DIRECT 0.2 MG/DL (0.0-0.2); BILIRUBIN,TOTAL 0.7 MG/DL (0.2-1.0); BLOOD UREA NITROGEN 11 MG/DL (7-18); CALCIUM LEVEL 9.5 MG/DL (8.5-10.1); CARBON DIOXIDE LEVEL 25 MEQ/L (21-32); CHLORIDE LEVEL 106 MEQ/L (98-107); GLOMERULAR FILTRATION RATE > 60.0 (>60); GLUCOSE, FASTING 91 MG/DL (70-100); NT-PRO BNP 7 PG/ML (<125); POTASSIUM SERUM 4.1 MEQ/L (3.5-5.1); SODIUM LEVEL 137 MEQ/L (136-145); THYROXINE (T4) 5.6 UG/DL (4.5-12.0); TOTAL PROTEIN 7.1 GM/DL (6.4-8.2)
[2021-07-12 17:14] VITALS: BP 116/67
[2021-07-12] MEDS ORDERED: predniSONE 20 MG TAB PO ONE (17:15)
[2021-07-12] MEDS ORDERED: PRED20TA PO (17:17)
== END 2021-07-12 17:25 | disposition home or self-care (01) ==
LOC: M ED 12:46
DX: J20.9 Acute bronchitis, unspecified (principal); G89.29 Other chronic pain; M54.50 Low back pain, unspecified; I10 Essential (primary) hypertension; Z88.0 Allergy status to penicillin; Z91.013 Allergy to seafood; Z79.899 Other long term (current) drug therapy; F17.200 Nicotine dependence, unspecified, uncomplicated
CPT/HCPCS: 36415; 71045; 72072; 80048; 80076; 82550; 82553; 83880; 84436; 84443; 85025; 93005; 99284; J7512

== ENCOUNTER → 2021-09-13 | Outpatient (CLI) | payer OTHER ==
[~2021-09-13] MED LIST changes: +AMLO2.5T3 PO; +FERR32TA PO; +GABA-1171 PO; +PRED20TA PO
[2021-09-13 17:15] LABS: BASO % 0.4 % (0.0-1.0); EOS # 0.1 10^3/uL (0.0-0.5); EOS % 1.2 % (0.0-3.0); HEMATOCRIT 38.9 % (42.0-52.0); LYMPH # 3.4 10^3/uL (1.5-5.0); LYMPH % 36.3 % (24.0-44.0); MEAN CORPUSCULAR HEMOGLOBIN 32.5 pg (27.0-33.0); MEAN CORPUSCULAR HGB CONC 33.4 g/dl (32.0-36.5); MEAN CORPUSCULAR VOLUME 97.3 fl (80.0-96.0); MONO # 1.1 10^3/uL (0.0-0.8); MONO % 11.9 % (2.0-8.0); NEUTROPHILS # 4.6 10^3/uL (1.5-8.5); PLATELET COUNT, AUTOMATED 301 10^3/uL (150-450); WHITE BLOOD COUNT 9.3 10^3/uL (4.0-10.0)
[2021-09-13 17:33] LABS: FERRITIN 91 NG/ML (26-388); IRON (FE) 106 UG/DL (65-175)
== END ==
LOC: M PLALAB 15:35
PROVIDERS: ATTEND Physician Assistant Medical
DX: D50.8 Other iron deficiency anemias (principal)

== ENCOUNTER → 2021-11-18 | Outpatient (CLI) | payer OTHER ==
[~2021-11-18] MED LIST changes: +E-Z-PAQUE 96% w/w SUSP 176GM BTL As Ordered ONE
== END ==
LOC: M RAD 08:10
PROVIDERS: ATTEND Physician Assistant Medical
DX: D50.9 Iron deficiency anemia, unspecified (principal)

== ENCOUNTER → 2022-04-07 | Outpatient (CLI) | payer OTHER ==
[~2022-04-07] MED LIST changes: -E-Z-PAQUE 96% w/w SUSP 176GM BTL As Ordered ONE
[2022-04-07 13:52] LABS: BASO % 0.6 % (0.0-1.0); EOS # 0.1 10^3/uL (0.0-0.5); EOS % 1.8 % (0.0-3.0); HEMATOCRIT 42.9 % (42.0-52.0); LYMPH # 2.4 10^3/uL (1.5-5.0); LYMPH % 35.1 % (24.0-44.0); MEAN CORPUSCULAR HEMOGLOBIN 32.1 pg (27.0-33.0); MEAN CORPUSCULAR HGB CONC 32.6 g/dl (32.0-36.5); MEAN CORPUSCULAR VOLUME 98.4 fl (80.0-96.0); MONO % 14.6 % (2.0-8.0); NEUTROPHILS # 3.2 10^3/uL (1.5-8.5); NEUTROPHILS % 47.8 % (36.0-66.0); PLATELET COUNT, AUTOMATED 330 10^3/uL (150-450); RED BLOOD COUNT 4.36 10^6/uL (4.30-6.10); WHITE BLOOD COUNT 6.7 10^3/uL (4.0-10.0)
[2022-04-07 17:42] LABS: ALBUMIN 4.2 G/DL (3.2-5.2); ALKALINE PHOSPHATASE 56 U/L (46-116); ALT/SGPT 56 U/L (7.0-40); AST/SGOT 34 U/L (<34); BILIRUBIN,TOTAL 0.7 MG/DL (0.3-1.2); BLOOD UREA NITROGEN 14 MG/DL (9-23); CALCIUM LEVEL 9.3 MG/DL (8.5-10.1); CARBON DIOXIDE LEVEL 23 MMOL/L (20-31); CHLORIDE LEVEL 104 MMOL/L (98-107); CHOLESTEROL LEVEL 161 MG/DL (<200); CHOLESTEROL RISK RATIO 2.32 (<5); CPK CREATINE PHOSPHOKINASE 91 U/L (46-171); GLOMERULAR FILTRATION RATE > 60.0 (>56); GLUCOSE, FASTING 93 MG/DL (60-100); HDL CHOLESTEROL 69.1 MG/DL (>40); IRON (FE) 139 UG/DL (65-175); LDL CHOLESTEROL 80.1 MG/DL (<100); NON-HDL-C 92 MG/DL; POTASSIUM SERUM 4.8 MMOL/L (3.5-5.1); SODIUM LEVEL 136 MMOL/L (136-145); TOTAL PROTEIN 7.2 G/DL (5.7-8.2); TRIGLYCERIDES LEVEL 59 MG/DL (<150)
[2022-04-07 17:44] LABS: FERRITIN 65.7 NG/ML (10.5-307.3)
== END ==
LOC: M PLALAB 09:32
PROVIDERS: ATTEND Physician Assistant Medical
DX: E78.5 Hyperlipidemia, unspecified (principal)

== ENCOUNTER → 2022-04-26 | Outpatient (REF) | payer OTHER ==
[2022-04-26 18:41] LABS: INR 0.89; PROTHROMBIN TIME 12.2 SECONDS (12.5-14.5)
[2022-04-26 18:42] LABS: PARTIAL THROMBOPLASTIN TIME 29.2 SECONDS (24.8-34.2)
[2022-04-26 18:57] LABS: HEPATITIS B SURFACE ANTIBODY NEGATIVE (POSITIVE)
[2022-04-26 19:09] LABS: HEPATITIS B SURFACE ANTIGEN NEGATIVE (NEGATIVE)
== END ==
LOC: M SFHCPLAZ 17:27
PROVIDERS: ATTEND Physician Assistant Medical
DX: R79.89 Other specified abnormal findings of blood chemistry (principal)

== ENCOUNTER → 2022-04-28 | Outpatient (CLI) | payer OTHER | LOC: M WHC 08:12 | PROVIDERS: ATTEND Physician Assistant Medical | DX: R79.89 Other specified abnormal findings of blood chemistry (principal) ==

== ENCOUNTER → 2022-05-20 | Outpatient (CLI) | payer OTHER ==
[~2022-05-20] MED LIST changes: +PROHANCE 279.3MG/ML 15ML VIAL ONE
== END ==
LOC: M PLAIMG 09:00
PROVIDERS: ATTEND Physician Assistant Medical
DX: K76.89 Other specified diseases of liver (principal)
CPT/HCPCS: 74183; A9576

== ENCOUNTER → 2022-10-10 | Outpatient (CLI) | payer OTHER ==
[~2022-10-10] MED LIST changes: -PROHANCE 279.3MG/ML 15ML VIAL ONE
[2022-10-10 17:41] LABS: BASO % 0.2 % (0.0-1.0); EOS # 0.1 10^3/uL (0.0-0.5); EOS % 0.7 % (0.0-3.0); HEMATOCRIT 42.2 % (42.0-52.0); HEMOGLOBIN 14.1 g/dl (13.5-17.5); LYMPH # 3.3 10^3/uL (1.5-5.0); LYMPH % 34.4 % (24.0-44.0); MEAN CORPUSCULAR HEMOGLOBIN 32.2 pg (27.0-33.0); MEAN CORPUSCULAR HGB CONC 33.4 g/dl (32.0-36.5); MEAN CORPUSCULAR VOLUME 96.3 fl (80.0-96.0); MONO # 1.2 10^3/uL (0.0-0.8); NEUTROPHILS # 4.9 10^3/uL (1.5-8.5); NEUTROPHILS % 51.4 % (36.0-66.0); PLATELET COUNT, AUTOMATED 314 10^3/uL (150-450); RED BLOOD COUNT 4.38 10^6/uL (4.30-6.10); WHITE BLOOD COUNT 9.5 10^3/uL (4.0-10.0)
[2022-10-10 18:05] LABS: CHOLESTEROL RISK RATIO 2.25 (<5); HDL CHOLESTEROL 71.1 MG/DL (>40); LDL CHOLESTEROL 78.1 MG/DL (<100); NON-HDL-C 88.9 MG/DL
[2022-10-10 18:08] LABS: FERRITIN 72.1 NG/ML (10.5-307.3)
== END ==
LOC: M PLALAB 15:40
PROVIDERS: ATTEND Physician Assistant Medical
DX: D50.9 Iron deficiency anemia, unspecified (principal)

== ENCOUNTER → 2022-11-03 | Outpatient (CLI) | payer OTHER ==
[~2022-11-03] MED LIST changes: +PROHANCE 279.3MG/ML 15ML VIAL ONE
== END ==
LOC: M PLAIMG 07:47
PROVIDERS: ATTEND Physician Assistant Medical
DX: K76.89 Other specified diseases of liver (principal)
CPT/HCPCS: 74183; A9576

== ENCOUNTER → 2023-05-03 | Outpatient (CLI) | payer OTHER ==
[~2023-05-03] MED LIST changes: -ATOR1TAB21; +ATOR1TAB21 PO; +LISI20TA33 PO; +PROHANCE 279.3MG/ML 15ML VIAL As Ordered ONE; -PROHANCE 279.3MG/ML 15ML VIAL ONE
== END ==
LOC: M RAD 13:04
PROVIDERS: ATTEND Physician Assistant Medical
DX: K76.89 Other specified diseases of liver (principal)
CPT/HCPCS: 74183; A9576

== ENCOUNTER → 2023-07-28 | Outpatient (CLI) | payer OTHER ==
[~2023-07-28] MED LIST changes: -PROHANCE 279.3MG/ML 15ML VIAL As Ordered ONE
== END ==
LOC: M PLARAD 13:36
PROVIDERS: ATTEND Physician Assistant
DX: M50.123 Cervical disc disorder at C6-C7 level with radiculopathy (principal)

== ENCOUNTER → 2023-08-10 | Outpatient (CLI) | payer OTHER ==
[2023-08-10 14:06] LABS: ALBUMIN 3.9 G/DL (3.2-5.2); ALKALINE PHOSPHATASE 70 U/L (46-116); ALT/SGPT 24 U/L (7.0-40); AST/SGOT 21 U/L (<34); BILIRUBIN,TOTAL 0.5 MG/DL (0.3-1.2); BLOOD UREA NITROGEN 17 MG/DL (9-23); CALCIUM LEVEL 9.9 MG/DL (8.5-10.1); CARBON DIOXIDE LEVEL 26 MMOL/L (20-31); CHLORIDE LEVEL 105 MMOL/L (98-107); CHOLESTEROL LEVEL 157 MG/DL (<200); CHOLESTEROL RISK RATIO 2.57 (<5); GLOMERULAR FILTRATION RATE > 60.0 (>56); GLUCOSE, FASTING 104 MG/DL (60-100); IRON (FE) 62 UG/DL (65-175); LDL CHOLESTEROL 83.4 MG/DL (<100); POTASSIUM SERUM 4.7 MMOL/L (3.5-5.1); PSA SCREENING 0.69 NG/ML (< 4.00); SODIUM LEVEL 133 MMOL/L (136-145); TOTAL PROTEIN 7.2 G/DL (5.7-8.2); TRIGLYCERIDES LEVEL 63 MG/DL (<150)
[2023-08-10 14:08] LABS: BASO % 0.5 % (0.0-1.0); EOS # 0.1 10^3/uL (0.0-0.5); HEMATOCRIT 42.4 % (42.0-52.0); HEMOGLOBIN 14.3 g/dl (13.5-17.5); LYMPH # 2.8 10^3/uL (1.5-5.0); LYMPH % 37.3 % (24.0-44.0); MEAN CORPUSCULAR HEMOGLOBIN 32.4 pg (27.0-33.0); MEAN CORPUSCULAR HGB CONC 33.7 g/dl (32.0-36.5); MEAN CORPUSCULAR VOLUME 96.1 fl (80.0-96.0); MONO % 13.1 % (2.0-8.0); NEUTROPHILS # 3.7 10^3/uL (1.5-8.5); PLATELET COUNT, AUTOMATED 342 10^3/uL (150-450); RED BLOOD COUNT 4.41 10^6/uL (4.30-6.10); WHITE BLOOD COUNT 7.6 10^3/uL (4.0-10.0)
[2023-08-10 14:09] LABS: FERRITIN 61.7 NG/ML (10.5-307.3)
== END ==
LOC: M PLALAB 10:04
PROVIDERS: ATTEND Physician Assistant Medical
DX: I10 Essential (primary) hypertension (principal); E78.5 Hyperlipidemia, unspecified; D50.8 Other iron deficiency anemias

== ENCOUNTER → 2023-09-12 | Outpatient (CLI) | payer OTHER ==
[~2023-09-12] MED LIST changes: +PROHANCE 279.3MG/ML 15ML VIAL ONE
== END ==
LOC: M PLAIMG 10:43
PROVIDERS: ATTEND Physician Assistant
DX: M50.123 Cervical disc disorder at C6-C7 level with radiculopathy (principal); M50.122 Cervical disc disorder at C5-C6 level with radiculopathy

== ENCOUNTER → 2024-02-20 | Outpatient (CLI) | payer OTHER ==
[~2024-02-20] MED LIST changes: -PROHANCE 279.3MG/ML 15ML VIAL ONE
[2024-02-20 18:06] LABS: ALKALINE PHOSPHATASE 70 U/L (46-116); ALT/SGPT 36 U/L (7.0-40); AST/SGOT 27 U/L (<34); BILIRUBIN,TOTAL 0.3 MG/DL (0.3-1.2); BLOOD UREA NITROGEN 15 MG/DL (9-23); CALCIUM LEVEL 9.8 MG/DL (8.5-10.1); CARBON DIOXIDE LEVEL 26 MMOL/L (20-31); CHLORIDE LEVEL 104 MMOL/L (98-107); CREATININE FOR GFR 0.69 MG/DL (0.70-1.30); GLOMERULAR FILTRATION RATE > 60.0 (>56); GLUCOSE, FASTING 92 MG/DL (60-100); POTASSIUM SERUM 4.6 MMOL/L (3.5-5.1); SODIUM LEVEL 135 MMOL/L (136-145); TOTAL PROTEIN 7.3 G/DL (5.7-8.2)
== END ==
LOC: M PLALAB 16:02
PROVIDERS: ATTEND Physician Assistant Medical
DX: E78.5 Hyperlipidemia, unspecified (principal); I10 Essential (primary) hypertension

== ENCOUNTER → 2024-06-25 | Outpatient (CLI) | payer OTHER | LOC: M PLAIMG 12:11 | PROVIDERS: ATTEND Physician Assistant | DX: M48.02 Spinal stenosis, cervical region (principal) ==

== ENCOUNTER → 2024-09-11 | Outpatient (CLI) | payer OTHER ==
[2024-09-11 13:38] LABS: BASO % 0.4 % (0.0-1.0); EOS # 0.1 10^3/uL (0.0-0.5); EOS % 1.4 % (0.0-3.0); HEMATOCRIT 41.6 % (42.0-52.0); HEMOGLOBIN 13.9 g/dl (13.5-17.5); LYMPH # 2.8 10^3/uL (1.5-5.0); LYMPH % 39.4 % (24.0-44.0); MEAN CORPUSCULAR HEMOGLOBIN 32.8 pg (27.0-33.0); MEAN CORPUSCULAR HGB CONC 33.4 g/dl (32.0-36.5); MEAN CORPUSCULAR VOLUME 98.1 fl (80.0-96.0); MONO # 0.9 10^3/uL (0.0-0.8); MONO % 12.1 % (2.0-8.0); NEUTROPHILS # 3.3 10^3/uL (1.5-8.5); NEUTROPHILS % 46.4 % (36.0-66.0); PLATELET COUNT, AUTOMATED 300 10^3/uL (150-450); RED BLOOD COUNT 4.24 10^6/uL (4.30-6.10); WHITE BLOOD COUNT 7.2 10^3/uL (4.0-10.0)
[2024-09-11 13:42] LABS: PSA SCREENING 0.84 NG/ML (< 4.00)
[2024-09-11 13:45] LABS: ALBUMIN 4.2 G/DL (3.2-5.2); ALKALINE PHOSPHATASE 53 U/L (40-129); ALT/SGPT 36 U/L (7.0-40); AST/SGOT 24 U/L (<34); BILIRUBIN,TOTAL 0.7 MG/DL (0.3-1.2); BLOOD UREA NITROGEN 14 MG/DL (9-23); CALCIUM LEVEL 9.4 MG/DL (8.5-10.1); CARBON DIOXIDE LEVEL 26 MMOL/L (20-31); CHLORIDE LEVEL 106 MMOL/L (98-107); CHOLESTEROL LEVEL 152 MG/DL (<200); CHOLESTEROL RISK RATIO 2.25 (<5); CREATININE FOR GFR 0.61 MG/DL (0.70-1.30); GLOMERULAR FILTRATION RATE > 90.0 (>56); GLUCOSE, FASTING 113 MG/DL (60-100); HDL CHOLESTEROL 67.4 MG/DL (>40); IRON (FE) 78 UG/DL (65-175); LDL CHOLESTEROL 69.6 MG/DL (<100); NON-HDL-C 84.6 MG/DL; POTASSIUM SERUM 4.4 MMOL/L (3.5-5.1); SODIUM LEVEL 139 MMOL/L (136-145); TOTAL PROTEIN 7.2 G/DL (5.7-8.2); TRIGLYCERIDES LEVEL 75 MG/DL (<150)
== END ==
LOC: M PLALAB 09:47
PROVIDERS: ATTEND Physician Assistant Medical
DX: R61 Generalized hyperhidrosis (principal)

== ENCOUNTER → 2024-09-13 | Outpatient (CLI) | payer OTHER ==
[2024-09-13 14:31] LABS: CK-MB VALUE MASS < 1.0 NG/ML (<3.6)
[2024-09-13 14:40] LABS: C REACTIVE PROTEIN QUANTITATIV < 0.50 MG/DL (<1.0); CPK CREATINE PHOSPHOKINASE 74 U/L (46-171); MB/CK RELATIVE INDEX 1.35 (< OR =4)
== END ==
LOC: M PLALAB 11:05
PROVIDERS: ATTEND Physician Assistant Medical
DX: M47.812 Spondylosis without myelopathy or radiculopathy, cervical region (principal); M48.04 Spinal stenosis, thoracic region